=== PATIENT | female | born 1935 | race Caucasian/White ===

== ENCOUNTER → 2018-12-08 | Outpatient (CLI) | payer MEDICARE ==
[~2018-12-08] MED LIST: AMOX875T OR; B12 PO; CELE100C OR; DICYCLOMINE PO; FIBER CHOICE PO; MYLI40DR OR; OXYBUTIN PO; PANTOPRAZOLE PO; VICO5TAB OR; VITAMIN D PO; [UNRECOGNIZED DRUG - OTHER] PO; [UNRECOGNIZED DRUG - OTHER] PO
--- NOTE | 2018-12-08 18:51 | REP ---
LEFT SHOULDER, FIVE VIEWS: SHOULDER: There is no evidence of an acute fracture, dislocation or intrinsic bone disease. IMPRESSION: No fracture or dislocation. Electronically Signed by Heladio Flanagan MD 12/09/2018 11:41 P
== END ==
LOC: M LRY 18:08
PROVIDERS: ATTEND Nurse Practitioner Family
DX: M25.512 Pain in left shoulder (principal)
CPT/HCPCS: 73030; G0463

== ENCOUNTER → 2019-04-10 | Outpatient (REF) | payer MEDICARE ==
[2019-04-10 13:43] LABS: APPEARANCE, URINE CLOUDY (CLEAR); BACTERIA, URINE AUTO 3+ (NEGATIVE); BILIRUBIN, URINE AUTO NEGATIVE (NEGATIVE); BLOOD, URINE BLOOD 1+ (NEGATIVE); COLOR, URINE YELLOW (YELLOW); GLUCOSE, URINE (UA) AUTO NEGATIVE (NEGATIVE); KETONE, URINE AUTO NEGATIVE (NEGATIVE); LEUKOCYTE ESTERASE, URINE AUTO 3+ (NEGATIVE); MUCUS, URINE SMALL (NEGATIVE); NITRITE, URINE AUTO NEGATIVE (NEGATIVE); PROTEIN, URINE AUTO NEGATIVE (NEGATIVE); RBC, URINE AUTO 8 /HPF (0-3); SQUAMOUS EPITHELIAL CELL UR AU 0 /HPF (0-6); UROBILINOGEN, URINE AUTO 0.2 mg/dL (0.0-2.0); WBC, URINE AUTO TNTC /HPF (0-3)
== END ==
LOC: M SMT 13:01
PROVIDERS: ATTEND Nurse Practitioner Family
DX: R32 Unspecified urinary incontinence (principal)
CPT/HCPCS: 51798; 81001; 87088; 87186; G0463

== ENCOUNTER → 2019-06-22 | Outpatient (REF) | payer MEDICARE ==
[2019-06-22 18:10] LABS: APPEARANCE, URINE HAZY (CLEAR); BACTERIA, URINE AUTO 3+ (NEGATIVE); BILIRUBIN, URINE AUTO NEGATIVE (NEGATIVE); BLOOD, URINE BLOOD NEGATIVE (NEGATIVE); COLOR, URINE YELLOW (YELLOW); GLUCOSE, URINE (UA) AUTO NEGATIVE (NEGATIVE); KETONE, URINE AUTO NEGATIVE (NEGATIVE); LEUKOCYTE ESTERASE, URINE AUTO 3+ (NEGATIVE); NITRITE, URINE AUTO NEGATIVE (NEGATIVE); PROTEIN, URINE AUTO NEGATIVE (NEGATIVE); RBC, URINE AUTO 8 /HPF (0-3); SPECIFIC GRAVITY URINE AUTO 1.005 (1.002-1.035); SQUAMOUS EPITHELIAL CELL UR AU 1 /HPF (0-6); UROBILINOGEN, URINE AUTO 0.2 mg/dL (0.0-2.0); WBC, URINE AUTO 92 /HPF (0-3)
== END ==
LOC: M SMT 16:55
PROVIDERS: ATTEND Nurse Practitioner Family
DX: N39.0 Urinary tract infection, site not specified (principal)
CPT/HCPCS: 81001; 87088; 87186; G0463

== ENCOUNTER → 2019-09-30 | Outpatient (CLI) | payer MEDICARE ==
--- NOTE | 2019-09-30 16:52 | REP ---
URINARY TRACT SONOGRAPHY: HISTORY: Urinary tract infection. Comparison CT study, May 23, 2011. SONOGRAPHIC FINDINGS: Visualized bladder alonzo are smooth on the filled views. There is irregularity which appears to protrude into the bladder lumen from the left posterolateral wall of the bladder on the postvoid images. This measures 11 mm in greatest diameter. I cannot exclude a small bladder mass, left posterior wall of the bladder. Consider cystoscopy. Prevoid bladder volume is calculated at 434 mL. Postvoid volume is calculated at 86 mL. Renal cortical echogenicity pattern is normal and contours are smooth. Scan quality is inhibited some degree by patient pain and bowel gas. No mass or cyst is seen. No hydronephrosis is noted in either kidney. Right kidney measures 9.4 x 4.0 x 4.1 cm. Left renal dimensions are 10.4 x 4.4 x 4.8 cm. IMPRESSION: Echogenic material appears to protrude into the left posterior bladder wall on postvoid images, uncertain significance. I cannot exclude a small bladder mass lesion. Consider cystoscopy. Otherwise, negative urinary tract sonography.
== END ==
LOC: M WHC 13:06
PROVIDERS: ATTEND Nurse Practitioner Family
DX: N39.0 Urinary tract infection, site not specified (principal)

== ENCOUNTER → 2019-10-07 | Outpatient (CLI) | payer MEDICARE ==
--- NOTE | 2019-10-09 00:23 | ECWPNPC ---
PATIENT NAME: JOSE L HARRIS : 1935 GENDER: FEMALE VISIT DATE: 10/07/2019 DISCHARGE DATE: 10/07/19 1511 VISIT LOCKED DATE TIME: PHYSICIAN: THOMAS MARTIN RESOURCE: THOMAS MARTIN REASON FOR APPOINTMENT 1. BACK PAIN/LUMBAR SPINE STENOSIS-DAUGHTER TO ACCOMPANY PATIENT HISTORY OF PRESENT ILLNESS DEPRESSION SCREENING: PHQ-2 (2015 EDITION) LITTLE INTEREST OR PLEASURE IN DOING THINGS?NOT AT ALL FEELING DOWN, DEPRESSED, OR HOPELESS?NOT AT ALL TOTAL SCORE0 84-YEAR-OLD FEMALE IN FOR INITIAL PAIN CONSULT. SHE RATES HER PAIN CURRENTLY AT A 10 OUT OF 10 AND DESCRIBES IT BURNING AND INTERMITTENT. PATIENT STATES THE PAIN HAS BEEN PRESENT FOR APPROXIMATELY 8 MONTHS. SHE IS CURRENTLY ON GABAPENTIN 100 MG DAILY TO HELP ALLEVIATE HER PAIN SYMPTOMS AND STATES THAT THIS CURRENT DOSAGE IS INEFFECTIVE. GENERAL: - - -. FALL RISK SCREENING: SCREENING :NO FALLS REPORTED IN THE LAST YEAR PAIN SCREENING: PATIENT HAS A COMPLAINT OF ACUTE OR CHRONIC PAIN :YES LOCATION OF PAIN:RIGHT HIP, LEG(S) INTENSITY OF PAIN (SCALE OF 1 TO 10):10 WHAT DOES YOUR PAIN FEEL LIKE:BURNING, INTERMITTENT DURATION:INTERMITTENT, AWAKENS FROM SLEEP PAIN IS INCREASED BY:ACTIVITIES PAIN IS DECREASED BY: WEARING SUPPORT HOSE NURSING NOTE: - - -. PAIN CENTER INTAKE QUESTIONS: DO YOU HAVE A HISTORY OF MRSA? :NO DO YOU TAKE A BLOOD THINNERS? :NO DO YOU HAVE ANY BLEEDING DISORDERS? :NO ANY NEW NUMBNESS OR WEAKNESS IN YOUR LEGS OR ARMS? :YES RIGHT LEG ANY PACEMAKER,DEFIBRILLATOR, OR DORSAL COLUMN STIMULATOR? :NO DO YOU HAVE ANY RASHES OR OPEN SORES? :NO ARE YOU ALLERGIC TO IV DYE? :YES ARE YOU DIABETIC? :YES BORDERLINE ANY NEW PROBLEMS WITH YOUR MEDICATIONS? :NO HAVE YOU RECEIVED A VACCINE IN THE PAST 30 DAYS? :NO DO YOU PLAN TO RECEIVE A VACCINE IN THE NEXT 21 DAYS? :NO DO YOU NEED ANY PRESCRIPTION? :NO DO YOU TAKE ANY IMMUNOSUPPRESSIVE MEDICATIONS? :NO CURRENT MEDICATIONS TAKING OMEPRAZOLE 40 MG CAPSULE DELAYED RELEASE 1 CAPSULE 30 MINUTES BEFORE MORNING MEAL ORALLY ONCE A DAY TAKING VITAMIN D (CHOLECALCIFEROL) 10 MCG (400 UNIT) TABLET CHEWABLE 1 TABLET ORALLY ONCE A DAY TAKING HAIR SKIN NAILS - CAPSULE DIRECTED ORALLY TAKING OXYBUTYNIN CHLORIDE 5 MG TABLET 1 TABLET ORALLY TWICE A DAY TAKING VITAMIN C 500 MG CAPSULE DIRECTED ORALLY TAKING BENEFIBER - POWDER DIRECTED ORALLY TAKING BUPROPION HCL 75 MG TABLET 2 TABLETS ORALLY TWICE A DAY TAKING GABAPENTIN 100 MG CAPSULE 1 CAPSULE ORALLY ONCE A DAY MEDICATION LIST REVIEWED AND RECONCILED WITH THE PATIENT PAST MEDICAL HISTORY BLADDER INFECTIONS BORDERLINE DIABETES DIVERTICULITIS RIGHT LEG/HIP PAIN ALLERGIES IV CONTRAST DYE: ANAPHYLAXIS - ALLERGY SURGICAL HISTORY BLADDER REPAIR 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 1 DAUGHTER WITH LUNG CANCER, 1 DAUGHTER WITH BREAST CANCER1 SON WITH COPD. SOCIAL HISTORY GENERAL: TOBACCO USE ARE YOU A:NONSMOKER LATEX QUESTIONNAIRE LATEX ALLERGY : HAVE YOU EVER DEVELOPED ANY TYPE OF REACTION AFTER HANDLING LATEX PRODUCTS SUCH RUBBER GLOVES, CONDOMS, DIAPHRAGMS, BALLOONS, SOCKS, OR UNDERWEAR?NO LATEX ALLERGY : HAVE YOU EVER DEVELOPED ANY TYPE OF REACTION DURING OR AFTER DENTAL APPOINTMENT, VAGINAL/RECTAL EXAMINATION, SURGICAL PROCEDURE, OR ANY OTHER EXPOSURE?NO LATEX RISK : HAVE YOU EVER HAD ANY DIFFICULTY BREATHING OR HIVES AFTER EATING OR HANDLING ANY FRUITS, OR VEGETABLES; SUCH KIWI, BANANAS, STONE FRUITS, OR CHESTNUTSNO LATEX RISK : DO YOU HAVE A PREVIOUS PERSONAL HISTORY OF MORE THAN NINE SURGERIES, SPINA BIFIDA, OR REPEATED CATHERIZATIONS? NO LATEX RISK : ARE YOU FREQUENTLY EXPOSED TO LATEX PRODUCTS IN YOUR OCCUPATION?NO DATE ASKED : 10/07/2019 ALCOHOL SCREENING DID YOU HAVE A DRINK CONTAINING ALCOHOL IN THE PAST YEAR?NO POINTS0 INTERPRETATIONNEGATIVE RECREATIONAL DRUG USE DRUG USE?NO CAFFEINE CAFFEINE USE?YES HOW OFTEN AND HOW MUCH? 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 OTHERS AT HOME: NONE. PAIN CLINIC PFS, CLERGY, PUBLIC HEALTH REFERRALS HAS THE PATIENT BEEN EDUCATED REGARDING HIS/HER PLAN OF CARE?YES HAS THE PATIENT BEEN EDUCATED REGARDING PAIN, THE RISK FOR PAIN, THE IMPORTANCE OF EFFECTIVE PAIN MANAGEMENT, AND THE PAIN ASSESSMENT PROCESS?YES ADVANCE DIRECTIVE ADVANCE DIRECTIVE DISCUSSED WITH PATIENT:YES NO PT HAS NO ADVANCED DIRECTIVES, HAS INFORMATION AND WORKING ON IT. HOSPITALIZATION/MAJOR DIAGNOSTIC PROCEDURE SURGICAL CHILDBIRTH REVIEW OF SYSTEMS CONSTITUTIONAL: ANY RECENT FEVER NO . CHILLS NO . WEIGHT CHANGE OF UNKNOWN REASONS NO . MUSCULOSKELETAL: ANY UNUSUAL JOINT PAIN OR SWELLING NOT MENTIONED NO . SYSTEMIC LUPUS NO . ANY NEUROMUSCULAR DISORDER NOT MENTIONED NO . LYME DISEASE NO . GASTROENTEROLOGY: ANY NEW CHANGE IN BOWEL CONTROL? NO . HISTORY OF LIVER DISORDER NOT MENTIONED NO . HISTORY OF UNUSUAL ABDOMINAL PAIN OR CRAMPING NOT MENTIONED NO . NO CONSTIPATION. GENITOURINARY: ANY NEW CHANGE IN BLADDER CONTROL? NO . ANY RENAL/KIDNEY CONDITON NOT MENTIONED NO . NEUROLOGY: HISTORY OF TBI NOT MENTIONED NO . OTHER NEW NUMBNESS OR PAIN PATTERNS NOT MENTIONED NO . NEW ONSET DIZZINESS OR NEUROLOGICAL CHANGES NOT MENTIONED NO . HISTORY OF SEVERE HEADACHES NOT MENTIONED NO . HISTORY OF STROKE OR NEUROLOGICAL DISORDER NOT MENTIONED NO . CARDIOLOGY: HEART SURGERY NO . CONGESTIVE HEART FAILURE/FLUID OVERLOAD NOT MENTIONED NO . HISTORY OF CHEST PAIN,IRREGULAR HEART BEAT NOT MENTIONED NO . RESPIRATORY: SHORTNESS OF BREATH ON EXERTION, WHEEZES, UNUSUAL COUGH NOT MENTIONED NO . ENDOCRINOLOGY: ADRENAL GLAND OR THYROID DISORDERS NOT MENTIONED NO . UNUSUAL URINATION, DIZZINESS OR LETHARGY NOT MENTIONED NO . VITAL SIGNS WT 101.8 LBS, HT 50 IN, BMI 28.63 INDEX, BP 144/61 MM HG, HR 50 /MIN, RR 18 /MIN, TEMP 96.0 F, OXYGEN SAT % 98%, NA INITIALS AW 1348. EXAMINATION GENERAL EXAMINATION: GENERALNO ACUTE DISTRESS, WELL NOURISHED AND HYDRATED. PSYCHAPPROPRIATE MOOD AND AFFECT . LUNGS:CLEAR TO AUSCULTATION BILATERALLY, NO WHEEZES, RHONCHI, RALES. HEART:NO MURMURS, REGULAR RATE AND RHYTHM. BACK:RIGHT SIJ . ASSESSMENTS SACROILIITIS, NOT ELSEWHERE CLASSIFIED - M46.1 (PRIMARY) TREATMENT SACROILIITIS, NOT ELSEWHERE CLASSIFIED REFILL GABAPENTIN CAPSULE, 100 MG, 1 CAPSULE, ORALLY, THREE TIMES DAILY, 30 DAY(S), 90 CLINICAL NOTES: 84-YEAR-OLD FEMALE IN FOR INITIAL PAIN CONSULT. GIVEN PRESENTING SYMPTOMS AND RESULTS OF PHYSICAL EXAMINATION RECOMMENDED INCREASING GABAPENTIN TO 100 MG 3 TIMES A DAY WITH FOLLOW-UP IN ONE MONTH TO DETERMINE EFFICACY OF TREATMENT. SIJ WAS DISCUSSED WITH PATIENT AND HER DAUGHTER THEY WILL BE GIVEN INFORMATION REGARDING THIS PROCEDURE PRIOR TO DEPARTURE TODAY. PATIENT AND DAUGHTER HAS EXPRESSED UNDERSTANDING OF AND WAS IN AGREEMENT WITH TREATMENT PLAN. GIVEN TIME TO ASK QUESTIONS AND EXPRESS CONCERNS. PREVENTIVE MEDICINE PAIN CLINIC TEACHING: MEDICATIONS INFORMATION HANDOUT FOR GABAPENTIN PRINTED AND REVIEWED WITH PATIENT AND DAUGHTER. MEDICATION CHANGES REVIEWED.. PROCEDURE TEACHING INFORMATION ON SACROILIAC JOINT BLOCK PRINTED AND REVIEWED WITH PATIENT AND DAUGHTER.. DISPOSITION & COMMUNICATION FOLLOW UP 4 WEEKS (REASON: SACROILITIS ) ELECTRONICALLY SIGNED BY BRITTANIE COSTA ON 10/08/2019 AT 08:09 AM EDT DISCLAIMER : THIS IS A VISIT SUMMARY EXTRACTED FROM THE [employer] CHART. IT IS NOT A COPY OF THE [employer] PROGRESS NOTE. KATHRIN
== END ==
LOC: M PAIN 13:30
PROVIDERS: ATTEND Family Medicine
DX: M46.1 Sacroiliitis, not elsewhere classified (principal)

== ENCOUNTER → 2020-01-11 | Outpatient (CLI) | payer MEDICARE | LOC: M PAIN 13:45 | PROVIDERS: ATTEND Family Medicine | DX: M46.1 Sacroiliitis, not elsewhere classified (principal) ==

== ENCOUNTER → 2020-01-22 | Outpatient (REF) | payer MEDICARE ==
[2020-01-22 17:32] LABS: APPEARANCE, URINE CLOUDY (CLEAR); BACTERIA, URINE AUTO 3+ (NEGATIVE); BILIRUBIN, URINE AUTO NEGATIVE (NEGATIVE); BLOOD, URINE BLOOD NEGATIVE (NEGATIVE); COLOR, URINE YELLOW (YELLOW); GLUCOSE, URINE (UA) AUTO NEGATIVE (NEGATIVE); KETONE, URINE AUTO NEGATIVE (NEGATIVE); LEUKOCYTE ESTERASE, URINE AUTO 2+ (NEGATIVE); MUCUS, URINE SMALL (NEGATIVE); NITRITE, URINE AUTO POSITIVE (NEGATIVE); PROTEIN, URINE AUTO NEGATIVE (NEGATIVE); RBC, URINE AUTO 1 /HPF (0-3); SPECIFIC GRAVITY URINE AUTO 1.014 (1.002-1.035); SQUAMOUS EPITHELIAL CELL UR AU 0 /HPF (0-6); UROBILINOGEN, URINE AUTO 0.2 mg/dL (0.0-2.0); WBC, URINE AUTO 61 /HPF (0-3)
== END ==
LOC: M SMT 17:15
PROVIDERS: ATTEND Nurse Practitioner Family
DX: N39.0 Urinary tract infection, site not specified (principal)
CPT/HCPCS: 51798; 81001; 87088; 87186; G0463

== ENCOUNTER → 2020-03-23 | Outpatient (REF) | payer MEDICARE ==
[2020-03-23 14:13] LABS: APPEARANCE, URINE CLOUDY (CLEAR); BACTERIA, URINE AUTO 2+ (NEGATIVE); BILIRUBIN, URINE AUTO NEGATIVE (NEGATIVE); BLOOD, URINE BLOOD NEGATIVE (NEGATIVE); COLOR, URINE YELLOW (YELLOW); GLUCOSE, URINE (UA) AUTO NEGATIVE (NEGATIVE); KETONE, URINE AUTO NEGATIVE (NEGATIVE); LEUKOCYTE ESTERASE, URINE AUTO 3+ (NEGATIVE); MUCUS, URINE SMALL (NEGATIVE); NITRITE, URINE AUTO POSITIVE (NEGATIVE); PROTEIN, URINE AUTO NEGATIVE (NEGATIVE); RBC, URINE AUTO 7 /HPF (0-3); SPECIFIC GRAVITY URINE AUTO 1.017 (1.002-1.035); SQUAMOUS EPITHELIAL CELL UR AU 5 /HPF (0-6); TRANSITIONAL EPITHELIAL AUTO 1 /HPF; UROBILINOGEN, URINE AUTO 0.2 mg/dL (0.0-2.0); WBC, URINE AUTO TNTC /HPF (0-3)
== END ==
LOC: M SMT 13:27
PROVIDERS: ATTEND Nurse Practitioner Family
DX: N39.0 Urinary tract infection, site not specified (principal)
CPT/HCPCS: 51798; 81001; 87088; 87186; G0463

== ENCOUNTER → 2020-03-25 | Outpatient (CLI) | payer MEDICARE ==
--- NOTE | 2020-03-29 01:18 | ECWPNPC ---
PATIENT NAME: JOSE L HARRIS : 1935 GENDER: FEMALE VISIT DATE: 03/25/2020 DISCHARGE DATE: 03/25/20 1057 VISIT LOCKED DATE TIME: PHYSICIAN: THOMAS MARTIN PHYSICIAN PAGER NO: ACTIVE RESOURCE: THOMAS MARTIN REASON FOR APPOINTMENT 1. BACK PAIN HISTORY OF PRESENT ILLNESS PAIN CENTER INTAKE QUESTIONS: 84-YEAR-OLD FEMALE IN FOR CHRONIC PAIN FOLLOW-UP. SHE RATES HER PAIN CURRENTLY AT AN 8 OUT OF 10 AND DESCRIBES IT STABBING AND CONTINUOUS. SHE FEELS HER MEDICATIONS ARE HELPFUL BUT DOES ADMIT TO INCREASED PAIN AT TIMES. GENERAL: -. FALL RISK SCREENING: SCREENING :NO FALLS REPORTED IN THE LAST YEAR PAIN SCREENING: PATIENT HAS A COMPLAINT OF ACUTE OR CHRONIC PAIN :YES PAIN IS INCREASED BY:ACTIVITIES,PROLONGED STANDING DURATION:CONSTANT,CONTINOUS WHAT DOES YOUR PAIN FEEL LIKE:STABBING,CONTINOUS INTENSITY OF PAIN (SCALE OF 1 TO 10):8 LOCATION OF PAIN:RIGHT HIP,LEG(S) NURSING NOTE: -. CURRENT MEDICATIONS TAKING OMEPRAZOLE 40 MG CAPSULE DELAYED RELEASE 1 CAPSULE 30 MINUTES BEFORE MORNING MEAL ORALLY ONCE A DAY TAKING VITAMIN D (CHOLECALCIFEROL) 10 MCG (400 UNIT) TABLET CHEWABLE 1 TABLET ORALLY ONCE A DAY TAKING HAIR SKIN NAILS - CAPSULE DIRECTED ORALLY TAKING VITAMIN C 500 MG CAPSULE DIRECTED ORALLY TAKING BENEFIBER - POWDER DIRECTED ORALLY TAKING BUPROPION HCL 75 MG TABLET 2 TABLETS ORALLY TWICE A DAY TAKING DONEPEZIL HCL 10 MG TABLET 1 TABLET AT BEDTIME ORALLY ONCE A DAY TAKING GABAPENTIN 100 MG CAPSULE 1 CAPSULE ORALLY TWO TIMES DAILY TAKING BACLOFEN 5 MG TABLET DIRECTED ORALLY THREE TIMES A DAY TAKING BACTRIM DS 800-160 MG TABLET 1 TABLET ORALLY TWICE A DAY TAKING TYLENOL 1 TAB ORAL TAKING METOPROLOL TARTRATE TAKING MEMANTINE HCL NOT-TAKING MACROBID 100 MG CAPSULE 1 CAP ORALLY BID NOT-TAKING OXYBUTYNIN CHLORIDE 5 MG TABLET 1 TABLET ORALLY TWICE A DAY NOT-TAKING KEFLEX 500 MG CAPSULE 1 CAPSULE ORALLY EVERY 12 HRS NOT-TAKING PYRIDIUM 200 MG TABLET 1 TABLET AFTER MEALS ORALLY THREE TIMES A DAY NOT-TAKING MACROBID 100 MG CAPSULE 1 CAP ORALLY BID MEDICATION LIST REVIEWED AND RECONCILED WITH THE PATIENT PAST MEDICAL HISTORY BLADDER INFECTIONS BORDERLINE DIABETES DIVERTICULITIS RIGHT LEG/HIP PAIN BORDERLINE DM BLADDER INFECTIONS DIVERTICULITIS ALLERGIES CONTRAST DYE IV CONTRAST DYE: ANAPHYLAXIS - ALLERGY IV CONTRAST DYE: ANAPHYLAXIS - ALLERGY SURGICAL HISTORY BLADDER REPAIR PESERY/BLADDER PART OF COLON REMOVED 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 1 DAUGHTER WITH LUNG CANCER, 1 DAUGHTER WITH BREAST CANCER1 SON WITH COPD. SOCIAL HISTORY GENERAL: TOBACCO USE ARE YOU A:NONSMOKER LATEX QUESTIONNAIRE LATEX ALLERGY : HAVE YOU EVER DEVELOPED ANY TYPE OF REACTION AFTER HANDLING LATEX PRODUCTS SUCH RUBBER GLOVES, CONDOMS, DIAPHRAGMS, BALLOONS, SOCKS, OR UNDERWEAR?NO LATEX ALLERGY : HAVE YOU EVER DEVELOPED ANY TYPE OF REACTION DURING OR AFTER DENTAL APPOINTMENT, VAGINAL/RECTAL EXAMINATION, SURGICAL PROCEDURE, OR ANY OTHER EXPOSURE?NO LATEX RISK : HAVE YOU EVER HAD ANY DIFFICULTY BREATHING OR HIVES AFTER EATING OR HANDLING ANY FRUITS, OR VEGETABLES; SUCH KIWI, BANANAS, STONE FRUITS, OR CHESTNUTSNO LATEX RISK : DO YOU HAVE A PREVIOUS PERSONAL HISTORY OF MORE THAN NINE SURGERIES, SPINA BIFIDA, OR REPEATED CATHERIZATIONS? NO LATEX RISK : ARE YOU FREQUENTLY EXPOSED TO LATEX PRODUCTS IN YOUR OCCUPATION?NO DATE ASKED : 03/25/2020 ALCOHOL SCREENING DID YOU HAVE A DRINK CONTAINING ALCOHOL IN THE PAST YEAR?NO DID YOU HAVE A DRINK CONTAINING ALCOHOL IN THE PAST YEAR?NO POINTS0 POINTS0 INTERPRETATIONNEGATIVE INTERPRETATIONNEGATIVE RECREATIONAL DRUG USE DRUG USE?NO DRUG USE?NO CAFFEINE CAFFEINE USE?YES CAFFEINE USE?YES COFFEE/TEA 2/DAY HOW OFTEN AND HOW MUCH? 2/DAY MORMON MORMON NO MOSQUE BELIEFS THAT WOULD IMPACT HEALTH CARE. 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, HAS HEARING AIDS BUT DOESN'T WEAR HEARING IMPAIRED?YES HEARING AIDS VISION IMPAIRED?YES VISION IMPAIRED?YES COGNITIVELY IMPAIRED?NO COGNITIVELY IMPAIRED?YES MILD DEMENTIA/MEMORY LOSS : GLASSES :CORRECTIVE LENSES READINESS TO LEARN?YES READINESS TO LEARN?YES LEARNING PREFERENCES?NO LEARNING PREFERENCES?YES WRITTEN INFORMATION :BOOKLETS, HANDOUTS, DEMONSTRATION/VERBAL INSTRUCTION LEARNING CAPABILITIES PRESENT?YES LEARNING CAPABILITIES PRESENT?YES EMOTIONAL BARRIERS?NO EMOTIONAL BARRIERS?NO SPECIAL DEVICES?NO SPECIAL DEVICES?NO CARE CENTER MANAGER NEEDED?NO CARE CENTER MANAGER NEEDED?NO DOMESTIC VIOLENCE STATUS: DO YOU FEEL SAFE IN YOUR ENVIRONMENT?YES 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 DIET: REGULAR. OTHERS AT HOME: NONE. PAIN CLINIC PFS, CLERGY, PUBLIC HEALTH REFERRALS HAS THE PATIENT BEEN EDUCATED REGARDING HIS/HER PLAN OF CARE?YES HAS THE PATIENT BEEN EDUCATED REGARDING PAIN, THE RISK FOR PAIN, THE IMPORTANCE OF EFFECTIVE PAIN MANAGEMENT, AND THE PAIN ASSESSMENT PROCESS?YES ADVANCE DIRECTIVE ADVANCE DIRECTIVE DISCUSSED WITH PATIENT:YES NO PT HAS NO ADVANCED DIRECTIVES, HAS INFORMATION AND WORKING ON IT. HOSPITALIZATION/MAJOR DIAGNOSTIC PROCEDURE SURGICAL CHILDBIRTH REVIEW OF SYSTEMS CONSTITUTIONAL: ANY RECENT FEVER NO . CHILLS NO . WEIGHT CHANGE OF UNKNOWN REASONS NO . GASTROENTEROLOGY: NEW UNEXPLAINABLE CHANGES IN BOWEL CONTROL NO . CONSTIPATION NO . GENITOURINARY: ANY NEW CHANGE IN BLADDER CONTROL? NO . NEUROLOGY: NEW ONSET DIZZINESS OR NEUROLOGICAL CHANGES NOT MENTIONED NO . NEW NUMBNESS OR PAIN PATTERNS NOT MENTIONED AND PERTINENT TO TODAY'S VISIT NO . CARDIOLOGY: NEW CHEST PRESSURE NO . NEW CHEST PAIN NO . RESPIRATORY: UNEXPLAINABLE COUGH NO . NEW SHORTNESS OF BREATH NO . VITAL SIGNS WT 109.6 LBS, HT 50 IN, BMI 30.82 INDEX, BP 122/61 MM HG, HR 67 /MIN, RR 16 /MIN, TEMP 97.0 F, OXYGEN SAT % 97%, NA INITIALS AW 1021. EXAMINATION GENERAL EXAMINATION: GENERALNO ACUTE DISTRESS, WELL NOURISHED AND HYDRATED. PSYCHAPPROPRIATE MOOD AND AFFECT . LUNGS:CLEAR TO AUSCULTATION BILATERALLY, NO WHEEZES, RHONCHI, RALES. HEART:NO MURMURS, REGULAR RATE AND RHYTHM. ASSESSMENTS ACUTE RIGHT-SIDED LOW BACK PAIN WITH RIGHT-SIDED SCIATICA - M54.41 (PRIMARY) TREATMENT ACUTE RIGHT-SIDED LOW BACK PAIN WITH RIGHT-SIDED SCIATICA REFILL BACLOFEN TABLET, 10 MG, DIRECTED, ORALLY, THREE TIMES A DAY, 30 DAYS, 90 NOTES: 84-YEAR-OLD FEMALE IN FOR CHRONIC PAIN FOLLOW-UP. GIVEN PRESENTING SYMPTOMS RECOMMEND INCREASING BACLOFEN TO 10 MG WITH FOLLOW-UP IN ONE MONTH TO DETERMINE EFFICACY OF TREATMENT. PATIENT AND HER DAUGHTER HAS EXPRESSED UNDERSTANDING OF AND WAS IN AGREEMENT WITH TREATMENT PLAN. GIVEN TIME TO ASK QUESTIONS AND EXPRESS CONCERNS. PROCEDURE CODES FA211 ESTABILISHED PATIENT [facility] CHARGE DISPOSITION & COMMUNICATION FOLLOW UP 4 WEEKS (REASON: MEDICATION) ELECTRONICALLY SIGNED BY BRITTANIE COSTA ON 03/28/2020 AT 08:53 AM EST DISCLAIMER : THIS IS A VISIT SUMMARY EXTRACTED FROM THE [employer] CHART. IT IS NOT A COPY OF THE [employer] PROGRESS NOTE. KATHRIN
== END ==
LOC: M PAIN 10:00
PROVIDERS: ATTEND Family Medicine
DX: M54.41 Lumbago with sciatica, right side (principal); G89.29 Other chronic pain; Z91.041 Radiographic dye allergy status; Z79.899 Other long term (current) drug therapy

== ENCOUNTER → 2020-04-25 | Outpatient (CLI) | payer MEDICARE ==
--- NOTE | 2020-04-28 03:59 | ECWPNPC ---
PATIENT NAME: JOSE L HARRIS : 1935 GENDER: FEMALE VISIT DATE: 04/25/2020 DISCHARGE DATE: 04/25/20 1118 VISIT LOCKED DATE TIME: PHYSICIAN: THOMAS MARTIN PHYSICIAN PAGER NO: ACTIVE RESOURCE: THOMAS MARTIN REASON FOR APPOINTMENT 1. 1 MONTH BACK PAIN HISTORY OF PRESENT ILLNESS DEPRESSION SCREENING: PHQ-2 (2015 EDITION) LITTLE INTEREST OR PLEASURE IN DOING THINGS?NOT AT ALL FEELING DOWN, DEPRESSED, OR HOPELESS?NOT AT ALL TOTAL SCORE0 84-YEAR-OLD FEMALE IN FOR CHRONIC PAIN FOLLOW-UP. SHE RATES HER PAIN CURRENTLY AT AN 10 OUT OF 10 AND DESCRIBES IT SHARP, AND TENDER. PATIENT WAS STARTED ON 10 MG OF BACLOFEN AT LAST CLINIC VISIT AND HER DAUGHTER ADMITS THAT THIS IS TOO STRONG THE PATIENT THEY HAD TO TITRATE BACK TO THE 5 MG DOSE. PAIN CENTER INTAKE QUESTIONS: DO YOU HAVE A HISTORY OF MRSA? :NO DO YOU TAKE A BLOOD THINNERS? :NO DO YOU HAVE ANY BLEEDING DISORDERS? :NO ANY NEW NUMBNESS OR WEAKNESS IN YOUR LEGS OR ARMS? :NO ANY PACEMAKER,DEFIBRILLATOR, OR DORSAL COLUMN STIMULATOR? :NO DO YOU HAVE ANY RASHES OR OPEN SORES? :NO ARE YOU ALLERGIC TO IV DYE? :YES ARE YOU DIABETIC? :YES BORDERLINE ANY NEW PROBLEMS WITH YOUR MEDICATIONS? :YES 10 MG. RIDDHI;LOFEN WAS TOO STRONG. PATIENT REDUCED SELF TO 5 MG. HAVE YOU RECEIVED A VACCINE IN THE PAST 30 DAYS? :NO DO YOU PLAN TO RECEIVE A VACCINE IN THE NEXT 21 DAYS? :NO DO YOU NEED ANY PRESCRIPTION? :NO DO YOU TAKE ANY IMMUNOSUPPRESSIVE MEDICATIONS? :NO IS THERE A CHANCE YOU COULD BE ? :NO ARE YOU BREAST FEEDING? :NO GENERAL: - - - - -. FALL RISK SCREENING: SCREENING :NO FALLS REPORTED IN THE LAST YEAR PAIN SCREENING: PATIENT HAS A COMPLAINT OF ACUTE OR CHRONIC PAIN :YES LOCATION OF PAIN:LOW BACK, RIGHT HIP, LEG(S) INTENSITY OF PAIN (SCALE OF 1 TO 10):10 WHAT DOES YOUR PAIN FEEL LIKE:SHARP, TENDER, OTHER STRONG DURATION:INTERMITTENT PAIN IS INCREASED BY:ACTIVITIES, OTHERS WALKING, SITTING PAIN IS DECREASED BY:USE OF PAIN MEDICATIONS NURSING NOTE: - - - - -. CURRENT MEDICATIONS TAKING OMEPRAZOLE 40 MG CAPSULE DELAYED RELEASE 1 CAPSULE 30 MINUTES BEFORE MORNING MEAL ORALLY ONCE A DAY TAKING HAIR SKIN NAILS - CAPSULE DIRECTED ORALLY TAKING VITAMIN C 500 MG CAPSULE DIRECTED ORALLY TAKING BENEFIBER - POWDER DIRECTED ORALLY TAKING BUPROPION HCL 75 MG TABLET 2 TABLETS ORALLY TWICE A DAY TAKING DONEPEZIL HCL 10 MG TABLET 1 TABLET AT BEDTIME ORALLY ONCE A DAY TAKING GABAPENTIN 100 MG CAPSULE 1 CAPSULE ORALLY TWO TIMES DAILY TAKING TYLENOL 1 TAB ORAL TAKING METOPROLOL TARTRATE TAKING MEMANTINE HCL TAKING BACLOFEN 10 MG TABLET DIRECTED ORALLY THREE TIMES A DAY TAKING IRON 325 (65 FE) MG TABLET 1 TABLET ORALLY ONCE A DAY NOT-TAKING VITAMIN D (CHOLECALCIFEROL) 10 MCG (400 UNIT) TABLET CHEWABLE 1 TABLET ORALLY ONCE A DAY NOT-TAKING BACTRIM DS 800-160 MG TABLET 1 TABLET ORALLY TWICE A DAY NOT-TAKING MACROBID 100 MG CAPSULE 1 CAP ORALLY BID NOT-TAKING MACROBID 100 MG CAPSULE 1 CAP ORALLY BID NOT-TAKING OXYBUTYNIN CHLORIDE 5 MG TABLET 1 TABLET ORALLY TWICE A DAY NOT-TAKING KEFLEX 500 MG CAPSULE 1 CAPSULE ORALLY EVERY 12 HRS NOT-TAKING PYRIDIUM 200 MG TABLET 1 TABLET AFTER MEALS ORALLY THREE TIMES A DAY NOT-TAKING MACROBID 100 MG CAPSULE 1 CAP ORALLY BID PAST MEDICAL HISTORY BLADDER INFECTIONS BORDERLINE DIABETES DIVERTICULITIS RIGHT LEG/HIP PAIN BORDERLINE DM BLADDER INFECTIONS DIVERTICULITIS ALLERGIES CONTRAST DYE IV CONTRAST DYE: ANAPHYLAXIS - ALLERGY IV CONTRAST DYE: ANAPHYLAXIS - ALLERGY SURGICAL HISTORY BLADDER REPAIR PESERY/BLADDER PART OF COLON REMOVED 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 1 DAUGHTER WITH LUNG CANCER, 1 DAUGHTER WITH BREAST CANCER1 SON WITH COPD. SOCIAL HISTORY GENERAL: TOBACCO USE ARE YOU A:NONSMOKER LATEX QUESTIONNAIRE LATEX ALLERGY : HAVE YOU EVER DEVELOPED ANY TYPE OF REACTION AFTER HANDLING LATEX PRODUCTS SUCH RUBBER GLOVES, CONDOMS, DIAPHRAGMS, BALLOONS, SOCKS, OR UNDERWEAR?NO LATEX ALLERGY : HAVE YOU EVER DEVELOPED ANY TYPE OF REACTION DURING OR AFTER DENTAL APPOINTMENT, VAGINAL/RECTAL EXAMINATION, SURGICAL PROCEDURE, OR ANY OTHER EXPOSURE?NO LATEX RISK : HAVE YOU EVER HAD ANY DIFFICULTY BREATHING OR HIVES AFTER EATING OR HANDLING ANY FRUITS, OR VEGETABLES; SUCH KIWI, BANANAS, STONE FRUITS, OR CHESTNUTSNO LATEX RISK : DO YOU HAVE A PREVIOUS PERSONAL HISTORY OF MORE THAN NINE SURGERIES, SPINA BIFIDA, OR REPEATED CATHERIZATIONS? NO LATEX RISK : ARE YOU FREQUENTLY EXPOSED TO LATEX PRODUCTS IN YOUR OCCUPATION?NO DATE ASKED : 04/25/2020 ALCOHOL SCREENING DID YOU HAVE A DRINK CONTAINING ALCOHOL IN THE PAST YEAR?NO DID YOU HAVE A DRINK CONTAINING ALCOHOL IN THE PAST YEAR?NO POINTS0 POINTS0 INTERPRETATIONNEGATIVE INTERPRETATIONNEGATIVE RECREATIONAL DRUG USE DRUG USE? NO. CAFFEINE CAFFEINE USE?YES CAFFEINE USE?YES COFFEE/TEA 2/DAY HOW OFTEN AND HOW MUCH? 2/DAY MORMON MORMON NO YARSANI BELIEFS THAT WOULD IMPACT HEALTH CARE. 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, HAS HEARING AIDS BUT DOESN'T WEAR VISION IMPAIRED?YES VISION IMPAIRED?YES COGNITIVELY IMPAIRED?NO COGNITIVELY IMPAIRED?YES MILD DEMENTIA/MEMORY LOSS : GLASSES :CORRECTIVE LENSES READINESS TO LEARN?YES READINESS TO LEARN?YES LEARNING PREFERENCES?NO LEARNING PREFERENCES?YES WRITTEN INFORMATION :BOOKLETS, HANDOUTS, DEMONSTRATION/VERBAL INSTRUCTION LEARNING CAPABILITIES PRESENT?YES LEARNING CAPABILITIES PRESENT?YES EMOTIONAL BARRIERS?NO EMOTIONAL BARRIERS?NO SPECIAL DEVICES?NO SPECIAL DEVICES?NO RESEARCH KENNEL SUPERVISOR NEEDED?NO RESEARCH KENNEL SUPERVISOR NEEDED?NO DOMESTIC VIOLENCE STATUS: DO YOU FEEL SAFE IN YOUR ENVIRONMENT?YES 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 DIET: REGULAR. OTHERS AT HOME: NONE. PAIN CLINIC PFS, CLERGY, PUBLIC HEALTH REFERRALS HAS THE PATIENT BEEN EDUCATED REGARDING HIS/HER PLAN OF CARE?YES HAS THE PATIENT BEEN EDUCATED REGARDING PAIN, THE RISK FOR PAIN, THE IMPORTANCE OF EFFECTIVE PAIN MANAGEMENT, AND THE PAIN ASSESSMENT PROCESS?YES ADVANCE DIRECTIVE ADVANCE DIRECTIVE DISCUSSED WITH PATIENT:YES PT HAS NO ADVANCED DIRECTIVES, GAVE PATIENT INFORMATION. 04/25/20 HOSPITALIZATION/MAJOR DIAGNOSTIC PROCEDURE SURGICAL CHILDBIRTH REVIEW OF SYSTEMS CONSTITUTIONAL: ANY RECENT FEVER NO . CHILLS NO . WEIGHT CHANGE OF UNKNOWN REASONS NO . GASTROENTEROLOGY: NEW UNEXPLAINABLE CHANGES IN BOWEL CONTROL NO . CONSTIPATION NO . GENITOURINARY: ANY NEW CHANGE IN BLADDER CONTROL? NO . NEUROLOGY: NEW ONSET DIZZINESS OR NEUROLOGICAL CHANGES NOT MENTIONED NO . NEW NUMBNESS OR PAIN PATTERNS NOT MENTIONED AND PERTINENT TO TODAY'S VISIT NO . CARDIOLOGY: NEW CHEST PRESSURE NO . NEW CHEST PAIN NO . RESPIRATORY: UNEXPLAINABLE COUGH NO . NEW SHORTNESS OF BREATH NO . VITAL SIGNS WT 104.8 LBS, HT 50 IN, BMI 29.47 INDEX, BP 164/72 MM HG, HR 65 /MIN, RR 16 /MIN, TEMP 97.6 F, OXYGEN SAT % 97%, SAFE IN ENV? (Y/N) YES, NA INITIALS SC 10:25, REVIEWED BY: ROWAN HILLMAN MA. EXAMINATION GENERAL EXAMINATION: GENERALNO ACUTE DISTRESS, WELL NOURISHED AND HYDRATED. PSYCHAPPROPRIATE MOOD AND AFFECT . LUNGS:CLEAR TO AUSCULTATION BILATERALLY, NO WHEEZES, RHONCHI, RALES. HEART:NO MURMURS, REGULAR RATE AND RHYTHM. ASSESSMENTS SACROILIITIS, NOT ELSEWHERE CLASSIFIED - M46.1 (PRIMARY) TREATMENT SACROILIITIS, NOT ELSEWHERE CLASSIFIED REFILL BACLOFEN TABLET, 5 MG, DIRECTED, ORALLY, THREE TIMES A DAY, 30 DAYS, 90 NOTES: 84-YEAR-OLD FEMALE IN FOR CHRONIC PAIN FOLLOW-UP. GIVEN PRESENTING SYMPTOMS RECOMMEND INCREASING GABAPENTIN TO 100 MG IN THE MORNING AND 200 MG AT NIGHT. WE'LL FOLLOW-UP IN 2 MONTHS. PATIENT AND HER DAUGHTER HAVE EXPRESSED UNDERSTANDING OF AND WERE IN AGREEMENT WITH TREATMENT PLAN. GIVEN TIME TO ASK QUESTIONS AND EXPRESS CONCERNS. PROCEDURE CODES FA211 ESTABILISHED PATIENT [facility]LY [facility] CHARGE DISPOSITION & COMMUNICATION FOLLOW UP 2 MONTHS (REASON: MED INCREASE) ELECTRONICALLY SIGNED BY BRITTANIE COSTA ON 04/27/2020 AT 10:03 AM EST DISCLAIMER : THIS IS A VISIT SUMMARY EXTRACTED FROM THE [employer] CHART. IT IS NOT A COPY OF THE [employer] PROGRESS NOTE. KATHRIN
== END ==
LOC: M PAIN 10:15
PROVIDERS: ATTEND Family Medicine
DX: M46.1 Sacroiliitis, not elsewhere classified (principal); G89.29 Other chronic pain; Z91.041 Radiographic dye allergy status; Z79.899 Other long term (current) drug therapy

== ENCOUNTER → 2020-07-14 | Outpatient (CLI) | payer MEDICARE ==
--- NOTE | 2020-07-15 23:40 | ECWPNPC ---
PATIENT NAME: JOSE L HARRIS : 1935 GENDER: FEMALE VISIT DATE: 07/14/2020 DISCHARGE DATE: 07/14/20 1134 VISIT LOCKED DATE TIME: PHYSICIAN: THOMAS MARTIN PHYSICIAN PAGER NO: ACTIVE RESOURCE: THOMAS MARTIN REASON FOR APPOINTMENT 1. MED INCREASE HISTORY OF PRESENT ILLNESS GENERAL: - 85-YEAR-OLD FEMALE IN FOR CHRONIC PAIN FOLLOW-UP. AT LAST CLINIC VISIT PATIENT'S GABAPENTIN WAS INCREASED AND THEY ADMITTED TODAY THAT THIS WAS NOT BENEFICIAL. SHE RATES HER PAIN CURRENTLY AT A 7 OUT OF 10 AND DESCRIBES IT CONTINUOUS AND SHARP. FALL RISK SCREENING: SCREENING : NO FALLS REPORTED IN THE LAST YEAR. PAIN SCREENING: PATIENT HAS A COMPLAINT OF ACUTE OR CHRONIC PAIN :YES LOCATION OF PAIN:LOW BACK, LEFT HIP, RIGHT HIP, OTHER: BUTTOCKS INTENSITY OF PAIN (SCALE OF 1 TO 10):7 WHAT DOES YOUR PAIN FEEL LIKE:CONTINOUS, SHARP DURATION:CONTINOUS, AWAKENS FROM SLEEP PAIN IS INCREASED BY:OTHERS SITTING PAIN IS DECREASED BY:USE OF PAIN MEDICATIONS, OTHERS BACLOFEN, GABAPENTIN. REPOSITIONING NURSING NOTE: -. PAIN CENTER INTAKE QUESTIONS: DO YOU HAVE A HISTORY OF MRSA? :NO DO YOU TAKE A BLOOD THINNERS? :NO DO YOU HAVE ANY BLEEDING DISORDERS? :NO ANY NEW NUMBNESS OR WEAKNESS IN YOUR LEGS OR ARMS? :NO ANY PACEMAKER,DEFIBRILLATOR, OR DORSAL COLUMN STIMULATOR? :NO DO YOU HAVE ANY RASHES OR OPEN SORES? :NO ARE YOU ALLERGIC TO IV DYE? :YES ARE YOU DIABETIC? :YES BORDERLINE ANY NEW PROBLEMS WITH YOUR MEDICATIONS? :NO HAVE YOU RECEIVED A VACCINE IN THE PAST 30 DAYS? :YES SECOND COVID VACCINATION 06/22/2020 DO YOU PLAN TO RECEIVE A VACCINE IN THE NEXT 21 DAYS? :NO DO YOU NEED ANY PRESCRIPTION? :YES BACLOFEN AND GABAPENTIN DO YOU TAKE ANY IMMUNOSUPPRESSIVE MEDICATIONS? :NO DO YOU HAVE ANY KIDNEY OR LIVER DISEASE? :NO IS THERE A CHANCE YOU COULD BE ? :NO ARE YOU BREAST FEEDING? :NO CURRENT MEDICATIONS TAKING OMEPRAZOLE 40 MG CAPSULE DELAYED RELEASE 1 CAPSULE 30 MINUTES BEFORE MORNING MEAL ORALLY ONCE A DAY TAKING HAIR SKIN NAILS - CAPSULE DIRECTED ORALLY TAKING VITAMIN C 500 MG CAPSULE DIRECTED ORALLY TAKING BENEFIBER - POWDER DIRECTED ORALLY TAKING DONEPEZIL HCL 10 MG TABLET 1 TABLET AT BEDTIME ORALLY ONCE A DAY TAKING TYLENOL 1 TAB ORAL TAKING METOPROLOL TARTRATE 25 MG TABLET ORALLY DAILY TAKING MEMANTINE HCL 10 MG TABLET 2 TAB ORALLY DAILY TAKING IRON 325 (65 FE) MG TABLET 1 TABLET ORALLY ONCE A DAY TAKING BACLOFEN 5 MG TABLET DIRECTED ORALLY THREE TIMES A DAY TAKING DARIFENACIN HYDROBROMIDE ER 15 MG TABLET EXTENDED RELEASE 24 HOUR 1 TABLET WITH LIQUID ORALLY ONCE A DAY TAKING GABAPENTIN 100 MG CAPSULE 1 CAPSULE ORALLY TWO TIMES DAILY NOT-TAKING BUPROPION HCL 75 MG TABLET 2 TABLETS ORALLY TWICE A DAY NOT-TAKING MYRBETRIQ 50 MG TABLET 1 TABLET ORALLY ONCE A DAY UNKNOWN VITAMIN D (CHOLECALCIFEROL) 10 MCG (400 UNIT) TABLET CHEWABLE 1 TABLET ORALLY ONCE A DAY UNKNOWN BACTRIM DS 800-160 MG TABLET 1 TABLET ORALLY TWICE A DAY UNKNOWN MACROBID 100 MG CAPSULE 1 CAP ORALLY BID UNKNOWN MACROBID 100 MG CAPSULE 1 CAP ORALLY BID UNKNOWN OXYBUTYNIN CHLORIDE 5 MG TABLET 1 TABLET ORALLY TWICE A DAY UNKNOWN KEFLEX 500 MG CAPSULE 1 CAPSULE ORALLY EVERY 12 HRS UNKNOWN PYRIDIUM 200 MG TABLET 1 TABLET AFTER MEALS ORALLY THREE TIMES A DAY UNKNOWN MACROBID 100 MG CAPSULE 1 CAP ORALLY BID MEDICATION LIST REVIEWED AND RECONCILED WITH THE PATIENT PAST MEDICAL HISTORY BLADDER INFECTIONS BORDERLINE DIABETES DIVERTICULITIS RIGHT LEG/HIP PAIN BORDERLINE DM BLADDER INFECTIONS DIVERTICULITIS ALLERGIES CONTRAST DYE IV CONTRAST DYE: ANAPHYLAXIS - ALLERGY IV CONTRAST DYE: ANAPHYLAXIS - ALLERGY SOCIAL HISTORY GENERAL: TOBACCO USE ARE YOU A:NONSMOKER LATEX QUESTIONNAIRE LATEX ALLERGY : HAVE YOU EVER DEVELOPED ANY TYPE OF REACTION AFTER HANDLING LATEX PRODUCTS SUCH RUBBER GLOVES, CONDOMS, DIAPHRAGMS, BALLOONS, SOCKS, OR UNDERWEAR?NO LATEX ALLERGY : HAVE YOU EVER DEVELOPED ANY TYPE OF REACTION DURING OR AFTER DENTAL APPOINTMENT, VAGINAL/RECTAL EXAMINATION, SURGICAL PROCEDURE, OR ANY OTHER EXPOSURE?NO LATEX RISK : HAVE YOU EVER HAD ANY DIFFICULTY BREATHING OR HIVES AFTER EATING OR HANDLING ANY FRUITS, OR VEGETABLES; SUCH KIWI, BANANAS, STONE FRUITS, OR CHESTNUTSNO LATEX RISK : DO YOU HAVE A PREVIOUS PERSONAL HISTORY OF MORE THAN NINE SURGERIES, SPINA BIFIDA, OR REPEATED CATHERIZATIONS? NO LATEX RISK : ARE YOU FREQUENTLY EXPOSED TO LATEX PRODUCTS IN YOUR OCCUPATION?NO DATE ASKED : 07/14/2020 ALCOHOL USE: NO. ALCOHOL SCREENING DID YOU HAVE A DRINK CONTAINING ALCOHOL IN THE PAST YEAR?NO DID YOU HAVE A DRINK CONTAINING ALCOHOL IN THE PAST YEAR?NO POINTS0 POINTS0 INTERPRETATIONNEGATIVE INTERPRETATIONNEGATIVE RECREATIONAL DRUG USE DRUG USE?NO CAFFEINE CAFFEINE USE?YES COFFEE/TEA 2/DAY CAFFEINE USE?YES HOW OFTEN AND HOW MUCH? 2/DAY CHEONDOISM CHEONDOISM NO ANABAPTISM BELIEFS THAT WOULD IMPACT HEALTH CARE. 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 DIET: REGULAR. EXERCISE: NO REGULAR EXERCISE. OTHERS AT HOME: NONE. - HAS THE PATIENT BEEN EDUCATED REGARDING HIS/HER PLAN OF CARE?YES HAS THE PATIENT BEEN EDUCATED REGARDING PAIN, THE RISK FOR PAIN, THE IMPORTANCE OF EFFECTIVE PAIN MANAGEMENT, AND THE PAIN ASSESSMENT PROCESS?YES ADVANCE DIRECTIVE ADVANCE DIRECTIVE DISCUSSED WITH PATIENT:YES PT HAS NO ADVANCED DIRECTIVES, GAVE PATIENT INFORMATION. 04/25/20 REVIEW OF SYSTEMS CONSTITUTIONAL: ANY RECENT FEVER NO . CHILLS NO . WEIGHT CHANGE OF UNKNOWN REASONS NO . GASTROENTEROLOGY: NEW UNEXPLAINABLE CHANGES IN BOWEL CONTROL NO . CONSTIPATION NO . GENITOURINARY: ANY NEW CHANGE IN BLADDER CONTROL? NO . NEUROLOGY: NEW ONSET DIZZINESS OR NEUROLOGICAL CHANGES NOT MENTIONED NO . NEW NUMBNESS OR PAIN PATTERNS NOT MENTIONED AND PERTINENT TO TODAY'S VISIT NO . CARDIOLOGY: NEW CHEST PRESSURE NO . PATIENT DENIES NO . RESPIRATORY: UNEXPLAINABLE COUGH NO . NEW SHORTNESS OF BREATH NO . VITAL SIGNS WT 110 LBS, HT 50 IN, BMI 30.93 INDEX, BP 148/64 MM HG, HR 57 /MIN, RR 18 /MIN, TEMP 96.8 F, OXYGEN SAT % 96%, SAFE IN ENV? (Y/N) YES, REVIEWED BY: ROWAN HILLMAN MA. EXAMINATION GENERAL EXAMINATION: GENERALNO ACUTE DISTRESS, WELL NOURISHED AND HYDRATED. PSYCHAPPROPRIATE MOOD AND AFFECT . LUNGS:CLEAR TO AUSCULTATION BILATERALLY, NO WHEEZES, RHONCHI, RALES. HEART:NO MURMURS, REGULAR RATE AND RHYTHM. ASSESSMENTS SACROILIITIS, NOT ELSEWHERE CLASSIFIED - M46.1 (PRIMARY), RISK: (NULL) TREATMENT SACROILIITIS, NOT ELSEWHERE CLASSIFIED REFILL GABAPENTIN CAPSULE, 100 MG, 1 CAPSULE, ORALLY, TWO TIMES DAILY, 90 DAY(S), 180, REFILLS 1 REFILL BACLOFEN TABLET, 5 MG, DIRECTED, ORALLY, THREE TIMES A DAY, 90 DAY(S), 270, REFILLS 1 NOTES: 85-YEAR-OLD FEMALE IN FOR CHRONIC PAIN FOLLOW-UP. GIVEN PRESENTING SYMPTOMS RECOMMEND STARTING EXTRA STRENGTH TYLENOL 500 MG 2 TABS IN THE MORNING 2 TABS AT NIGHT WITH FOLLOW-UP IN 3 MONTHS. PATIENT AND HER DAUGHTER EXPRESSED UNDERSTANDING OF AND WERE IN AGREEMENT WITH TREATMENT PLAN. GIVEN TIME TO ASK QUESTIONS AND EXPRESS CONCERNS. PROCEDURE CODES FA211 ESTABILISHED PATIENT [facility] CHARGE DISPOSITION & COMMUNICATION FOLLOW UP 3 MONTHS ELECTRONICALLY SIGNED BY BRITTANIE COSTA ON 07/15/2020 AT 08:50 AM EDT DISCLAIMER : THIS IS A VISIT SUMMARY EXTRACTED FROM THE [employer] CHART. IT IS NOT A COPY OF THE [employer] PROGRESS NOTE. KATHRIN
== END ==
LOC: M PAIN 10:45
PROVIDERS: ATTEND Family Medicine
DX: M46.1 Sacroiliitis, not elsewhere classified (principal); R73.03 Prediabetes; Z79.899 Other long term (current) drug therapy; Z91.041 Radiographic dye allergy status

== ENCOUNTER → 2020-09-29 | Outpatient (REF) | payer MEDICARE ==
[2020-09-29 14:05] LABS: APPEARANCE, URINE CLOUDY (CLEAR); BACTERIA, URINE AUTO 2+ (NEGATIVE); BILIRUBIN, URINE AUTO NEGATIVE (NEGATIVE); BLOOD, URINE BLOOD NEGATIVE (NEGATIVE); COLOR, URINE YELLOW (YELLOW); GLUCOSE, URINE (UA) AUTO NEGATIVE (NEGATIVE); KETONE, URINE AUTO NEGATIVE (NEGATIVE); LEUKOCYTE ESTERASE, URINE AUTO 3+ (NEGATIVE); MUCUS, URINE SMALL (NEGATIVE); NITRITE, URINE AUTO POSITIVE (NEGATIVE); PROTEIN, URINE AUTO NEGATIVE (NEGATIVE); RBC, URINE AUTO 1 /HPF (0-3); SPECIFIC GRAVITY URINE AUTO 1.018 (1.002-1.035); SQUAMOUS EPITHELIAL CELL UR AU 1 /HPF (0-6); UROBILINOGEN, URINE AUTO 0.2 mg/dL (0.0-2.0); WBC, URINE AUTO 67 /HPF (0-3)
== END ==
LOC: M SMT 13:05
PROVIDERS: ATTEND Nurse Practitioner Family
DX: R32 Unspecified urinary incontinence (principal)
CPT/HCPCS: 81001; 87088; 87186; G0463

== ENCOUNTER → 2020-10-13 | Outpatient (CLI) | payer MEDICARE ==
--- NOTE | 2020-10-15 06:41 | ECWPNPC ---
PATIENT NAME: JOSE L HARRIS : 1935 GENDER: FEMALE VISIT DATE: 10/13/2020 DISCHARGE DATE: 10/13/20 1052 VISIT LOCKED DATE TIME: PHYSICIAN: THOMAS MARTIN PHYSICIAN PAGER NO: ACTIVE RESOURCE: THOMAS MARTIN REASON FOR APPOINTMENT 1. FOLLOWUP HISTORY OF PRESENT ILLNESS GENERAL: HPI 85-YEAR-OLD FEMALE IN FOR CHRONIC PAIN FOLLOW-UP. AT LAST CLINIC VISIT PATIENT WAS STARTED ON TYLENOL EXTRA STRENGTH AND SHE ADMITS TODAY THAT THIS WAS BENEFICIAL. SHE RATES HER PAIN CURRENTLY AT A 0 OUT OF 10 BUT STATES IT CAN GO HIGH A 10 OUT OF 10 WITH ACTIVITY.. -. FALL RISK SCREENING: SCREENING : NO FALLS REPORTED IN THE LAST YEAR. PAIN SCREENING: PATIENT HAS A COMPLAINT OF ACUTE OR CHRONIC PAIN :YES LOCATION OF PAIN:LOW BACK INTENSITY OF PAIN (SCALE OF 1 TO 10):0 PATIENT DENIES PAIN AT THIS TIME. PATIENT STATES WHEN SHE HAS MOVEMENT, IT GETS UP TO A 10. WHAT DOES YOUR PAIN FEEL LIKE:BURNING, CONTINOUS DURATION:CONTINOUS, CONSTANT, STEADY PAIN IS INCREASED BY:ACTIVITIES, PROLONGED STANDING, OTHERS BENDING PAIN IS DECREASED BY:USE OF PAIN MEDICATIONS NURSING NOTE: -. PAIN CENTER INTAKE QUESTIONS: DO YOU HAVE A HISTORY OF MRSA? :NO DO YOU TAKE A BLOOD THINNERS? :NO DO YOU HAVE ANY BLEEDING DISORDERS? :NO ANY NEW NUMBNESS OR WEAKNESS IN YOUR LEGS OR ARMS? :NO ANY PACEMAKER,DEFIBRILLATOR, OR DORSAL COLUMN STIMULATOR? :NO DO YOU HAVE ANY RASHES OR OPEN SORES? :NO ARE YOU ALLERGIC TO IV DYE? :YES ARE YOU DIABETIC? :YES BORDERLINE ANY NEW PROBLEMS WITH YOUR MEDICATIONS? :NO HAVE YOU RECEIVED A VACCINE IN THE PAST 30 DAYS? :YES SECOND COVID VACCINATION 06/22/2020 DO YOU PLAN TO RECEIVE A VACCINE IN THE NEXT 21 DAYS? :NO DO YOU NEED ANY PRESCRIPTION? :YES BACLOFEN AND GABAPENTIN DO YOU TAKE ANY IMMUNOSUPPRESSIVE MEDICATIONS? :NO DO YOU HAVE ANY KIDNEY OR LIVER DISEASE? :NO IS THERE A CHANCE YOU COULD BE ? :NO ARE YOU BREAST FEEDING? :NO CURRENT MEDICATIONS TAKING OMEPRAZOLE 40 MG CAPSULE DELAYED RELEASE 1 CAPSULE 30 MINUTES BEFORE MORNING MEAL ORALLY ONCE A DAY TAKING HAIR SKIN NAILS - CAPSULE DIRECTED ORALLY TAKING VITAMIN C 500 MG CAPSULE DIRECTED ORALLY TAKING BENEFIBER - POWDER DIRECTED ORALLY TAKING TYLENOL 1 TAB ORAL TAKING METOPROLOL TARTRATE 25 MG TABLET ORALLY DAILY TAKING MEMANTINE HCL 10 MG TABLET 2 TAB ORALLY DAILY TAKING IRON 325 (65 FE) MG TABLET 1 TABLET ORALLY ONCE A DAY TAKING GABAPENTIN 100 MG CAPSULE 1 CAPSULE ORALLY TWO TIMES DAILY TAKING BACLOFEN 5 MG TABLET DIRECTED ORALLY THREE TIMES A DAY TAKING RIVASTIGMINE 4.6 MG/24HR PATCH 24 HOUR 1 PATCH TO SKIN TRANSDERMAL ONCE A DAY TAKING MACROBID 100 MG CAPSULE 1 CAP ORALLY BID TAKING IRON 1 TAB ORAL TAKING IMMODIUM 1 TAB ORAL TAKING FISH OIL 1000 MG CAPSULE 1 CAPSULE ORALLY ONCE A DAY NOT-TAKING DONEPEZIL HCL 10 MG TABLET 1 TABLET AT BEDTIME ORALLY ONCE A DAY NOT-TAKING BUPROPION HCL 75 MG TABLET 2 TABLETS ORALLY TWICE A DAY NOT-TAKING MYRBETRIQ 50 MG TABLET 1 TABLET ORALLY ONCE A DAY NOT-TAKING VITAMIN D (CHOLECALCIFEROL) 10 MCG (400 UNIT) TABLET CHEWABLE 1 TABLET ORALLY ONCE A DAY NOT-TAKING BACTRIM DS 800-160 MG TABLET 1 TABLET ORALLY TWICE A DAY NOT-TAKING MACROBID 100 MG CAPSULE 1 CAP ORALLY BID NOT-TAKING MACROBID 100 MG CAPSULE 1 CAP ORALLY BID NOT-TAKING OXYBUTYNIN CHLORIDE 5 MG TABLET 1 TABLET ORALLY TWICE A DAY NOT-TAKING KEFLEX 500 MG CAPSULE 1 CAPSULE ORALLY EVERY 12 HRS NOT-TAKING PYRIDIUM 200 MG TABLET 1 TABLET AFTER MEALS ORALLY THREE TIMES A DAY NOT-TAKING MACROBID 100 MG CAPSULE 1 CAP ORALLY BID MEDICATION LIST REVIEWED AND RECONCILED WITH THE PATIENT PAST MEDICAL HISTORY BLADDER INFECTIONS BORDERLINE DIABETES DIVERTICULITIS RIGHT LEG/HIP PAIN BORDERLINE DM BLADDER INFECTIONS DIVERTICULITIS ALLERGIES CONTRAST DYE IV CONTRAST DYE: ANAPHYLAXIS - ALLERGY IV CONTRAST DYE: ANAPHYLAXIS - ALLERGY SOCIAL HISTORY GENERAL: TOBACCO USE ARE YOU A:NONSMOKER LATEX QUESTIONNAIRE LATEX ALLERGY : HAVE YOU EVER DEVELOPED ANY TYPE OF REACTION AFTER HANDLING LATEX PRODUCTS SUCH RUBBER GLOVES, CONDOMS, DIAPHRAGMS, BALLOONS, SOCKS, OR UNDERWEAR?NO LATEX ALLERGY : HAVE YOU EVER DEVELOPED ANY TYPE OF REACTION DURING OR AFTER DENTAL APPOINTMENT, VAGINAL/RECTAL EXAMINATION, SURGICAL PROCEDURE, OR ANY OTHER EXPOSURE?NO LATEX RISK : HAVE YOU EVER HAD ANY DIFFICULTY BREATHING OR HIVES AFTER EATING OR HANDLING ANY FRUITS, OR VEGETABLES; SUCH KIWI, BANANAS, STONE FRUITS, OR CHESTNUTSNO LATEX RISK : DO YOU HAVE A PREVIOUS PERSONAL HISTORY OF MORE THAN NINE SURGERIES, SPINA BIFIDA, OR REPEATED CATHERIZATIONS? NO LATEX RISK : ARE YOU FREQUENTLY EXPOSED TO LATEX PRODUCTS IN YOUR OCCUPATION?NO DATE ASKED : 10/13/2020 ALCOHOL USE: NO. ALCOHOL SCREENING DID YOU HAVE A DRINK CONTAINING ALCOHOL IN THE PAST YEAR?NO DID YOU HAVE A DRINK CONTAINING ALCOHOL IN THE PAST YEAR?NO POINTS0 POINTS0 INTERPRETATIONNEGATIVE INTERPRETATIONNEGATIVE RECREATIONAL DRUG USE DRUG USE?NO CAFFEINE CAFFEINE USE?YES CAFFEINE USE?YES COFFEE/TEA 2/DAY HOW OFTEN AND HOW MUCH? 2/DAY CHEONDOISM CHEONDOISM NO CHRISTIAN BELIEFS THAT WOULD IMPACT HEALTH CARE. 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 DIET: REGULAR. EXERCISE: NO REGULAR EXERCISE. OTHERS AT HOME: NONE. - HAS THE PATIENT BEEN EDUCATED REGARDING HIS/HER PLAN OF CARE?YES HAS THE PATIENT BEEN EDUCATED REGARDING PAIN, THE RISK FOR PAIN, THE IMPORTANCE OF EFFECTIVE PAIN MANAGEMENT, AND THE PAIN ASSESSMENT PROCESS?YES ADVANCE DIRECTIVE ADVANCE DIRECTIVE DISCUSSED WITH PATIENT:YES PT HAS NO ADVANCED DIRECTIVES, GAVE PATIENT INFORMATION. 04/25/20 REVIEW OF SYSTEMS CONSTITUTIONAL: ANY RECENT FEVER NO . CHILLS NO . WEIGHT CHANGE OF UNKNOWN REASONS NO . GASTROENTEROLOGY: NEW UNEXPLAINABLE CHANGES IN BOWEL CONTROL NO . CONSTIPATION NO . GENITOURINARY: ANY NEW CHANGE IN BLADDER CONTROL? NO . NEUROLOGY: NEW ONSET DIZZINESS OR NEUROLOGICAL CHANGES NOT MENTIONED NO . NEW NUMBNESS OR PAIN PATTERNS NOT MENTIONED AND PERTINENT TO TODAY'S VISIT NO . CARDIOLOGY: NEW CHEST PRESSURE NO . PATIENT DENIES NO . RESPIRATORY: UNEXPLAINABLE COUGH NO . NEW SHORTNESS OF BREATH NO . VITAL SIGNS WT 112.2 LBS, HT 50 IN, BMI 31.55 INDEX, BP 145/91 MM HG, HR 50 /MIN, RR 18 /MIN, TEMP 96.6 F, OXYGEN SAT % 98%, SAFE IN ENV? (Y/N) YES, REVIEWED BY: ROWAN HILLMAN MA. EXAMINATION GENERAL EXAMINATION: GENERALNO ACUTE DISTRESS, WELL NOURISHED AND HYDRATED. PSYCHAPPROPRIATE MOOD AND AFFECT . LUNGS:CLEAR TO AUSCULTATION BILATERALLY, NO WHEEZES, RHONCHI, RALES. HEART:NO MURMURS, REGULAR RATE AND RHYTHM. ASSESSMENTS SACROILIITIS, NOT ELSEWHERE CLASSIFIED - M46.1 (PRIMARY) TREATMENT SACROILIITIS, NOT ELSEWHERE CLASSIFIED REFILL GABAPENTIN CAPSULE, 100 MG, 1 CAPSULE, ORALLY, TWO TIMES DAILY, 90 DAY(S), 180, REFILLS 1 REFILL BACLOFEN TABLET, 5 MG, DIRECTED, ORALLY, THREE TIMES A DAY, 90 DAY(S), 270, REFILLS 1 NOTES: 85-YEAR-OLD FEMALE IN FOR CHRONIC PAIN FOLLOW-UP. GIVEN PRESENTING SYMPTOMS RECOMMEND CONTINUATION OF CURRENT MEDICATION REGIMEN WITH FOLLOW-UP IN 3 MONTHS. PATIENT HAS EXPRESSED UNDERSTANDING OF AND WAS IN AGREEMENT WITH TREATMENT PLAN. GIVEN TIME TO ASK QUESTIONS AND EXPRESS CONCERNS. PROCEDURE CODES FA211 ESTABILISHED PATIENT [facility] CHARGE DISPOSITION & COMMUNICATION FOLLOW UP 3 MONTHS (REASON: SACROILIITIS) ELECTRONICALLY SIGNED BY BRITTANIE COSTA ON 10/14/2020 AT 08:26 AM EDT DISCLAIMER : THIS IS A VISIT SUMMARY EXTRACTED FROM THE [employer] CHART. IT IS NOT A COPY OF THE [employer] PROGRESS NOTE. ANDREWD
== END ==
LOC: M PAIN 10:30
PROVIDERS: ATTEND Family Medicine
DX: M46.1 Sacroiliitis, not elsewhere classified (principal); G89.29 Other chronic pain; Z91.041 Radiographic dye allergy status; Z79.899 Other long term (current) drug therapy

== ENCOUNTER → 2021-01-13 | Outpatient (CLI) | payer MEDICARE | LOC: M PAIN 10:30 | PROVIDERS: ATTEND Anesthesiology | DX: M46.1 Sacroiliitis, not elsewhere classified (principal); G89.29 Other chronic pain; Z91.041 Radiographic dye allergy status; Z79.899 Other long term (current) drug therapy ==

== ENCOUNTER → 2022-06-21 | Outpatient (REF) | payer MEDICARE ==
[2022-06-21 07:07] LABS: HEMATOCRIT 36.5 % (36.0-47.0); HEMOGLOBIN 11.6 g/dl (12.0-15.5); MEAN CORPUSCULAR HEMOGLOBIN 29.7 pg (27.0-33.0); MEAN CORPUSCULAR HGB CONC 31.8 g/dl (32.0-36.5); MEAN CORPUSCULAR VOLUME 93.4 fl (80.0-96.0); PLATELET COUNT, AUTOMATED 207 10^3/uL (150-450); RED BLOOD COUNT 3.91 10^6/uL (4.00-5.40); WHITE BLOOD COUNT 4.8 10^3/uL (4.0-10.0)
[2022-06-21 07:29] LABS: ALBUMIN 3.2 G/DL (3.2-5.2); ALKALINE PHOSPHATASE 50 U/L (46-116); ALT/SGPT 15 U/L (7.0-40); AST/SGOT 20 U/L (<34); BILIRUBIN,TOTAL 0.4 MG/DL (0.3-1.2); BLOOD UREA NITROGEN 22 MG/DL (9-23); CARBON DIOXIDE LEVEL 28 MMOL/L (20-31); CHLORIDE LEVEL 106 MMOL/L (98-107); CREATININE FOR GFR 0.69 MG/DL (0.55-1.30); GLOMERULAR FILTRATION RATE > 60.0 (>32); GLUCOSE, FASTING 92 MG/DL (74-106); POTASSIUM SERUM 4.6 MMOL/L (3.5-5.1); SODIUM LEVEL 141 MMOL/L (136-145); TOTAL PROTEIN 5.8 G/DL (5.7-8.2)
[2022-06-21 07:30] LABS: HEMOGLOBIN A1c 5.9 % (4.0-6.0)
== END ==
LOC: SKLAB6 07:00
PROVIDERS: ATTEND Internal Medicine
DX: E11.9 Type 2 diabetes mellitus without complications (principal); F03.90 Unspecified dementia, unspecified severity, without behavioral disturbance, psychotic disturbance, mood disturbance, and anxiety

== ENCOUNTER → 2022-07-25 | Outpatient (REF) | payer MEDICARE ==
[2022-07-25 09:51] LABS: HEMATOCRIT 39.3 % (36.0-47.0); HEMOGLOBIN 12.6 g/dl (12.0-15.5); MEAN CORPUSCULAR HEMOGLOBIN 29.5 pg (27.0-33.0); MEAN CORPUSCULAR HGB CONC 32.1 g/dl (32.0-36.5); PLATELET COUNT, AUTOMATED 226 10^3/uL (150-450); RED BLOOD COUNT 4.27 10^6/uL (4.00-5.40); WHITE BLOOD COUNT 7.1 10^3/uL (4.0-10.0)
[2022-07-25 10:14] LABS: BLOOD UREA NITROGEN 26 MG/DL (9-23); CALCIUM LEVEL 9.1 MG/DL (8.3-10.6); CARBON DIOXIDE LEVEL 28 MMOL/L (20-31); CHLORIDE LEVEL 104 MMOL/L (98-107); CREATININE FOR GFR 0.72 MG/DL (0.55-1.30); GLOMERULAR FILTRATION RATE > 60.0 (>32); GLUCOSE, FASTING 98 MG/DL (74-106); SODIUM LEVEL 140 MMOL/L (136-145)
[2022-07-25 14:11] LABS: APPEARANCE, URINE CLOUDY (CLEAR); BACTERIA, URINE AUTO 3+ (NEGATIVE); BILIRUBIN, URINE AUTO NEGATIVE (NEGATIVE); BLOOD, URINE BLOOD NEGATIVE (NEGATIVE); COLOR, URINE AMBER (YELLOW); GLUCOSE, URINE (UA) AUTO NEGATIVE (NEGATIVE); KETONE, URINE AUTO TRACE mg/dL (NEGATIVE); LEUKOCYTE ESTERASE, URINE AUTO 3+ (NEGATIVE); MUCUS, URINE SMALL (NEGATIVE); NITRITE, URINE AUTO POSITIVE (NEGATIVE); PROTEIN, URINE AUTO 1+ mg/dL (NEGATIVE); RBC, URINE AUTO 9 /HPF (0-3); SQUAMOUS EPITHELIAL CELL UR AU 6 /HPF (0-6); TRANSITIONAL EPITHELIAL AUTO 1 /HPF; WBC, URINE AUTO 105 /HPF (0-3)
== END ==
LOC: SKLAB6 08:27
PROVIDERS: ATTEND Internal Medicine
DX: R45.1 Restlessness and agitation (principal); Z79.899 Other long term (current) drug therapy

== ENCOUNTER → 2022-07-25 | Outpatient (REF) | LOC: SKLAB6 13:58 | PROVIDERS: ATTEND Internal Medicine | DX: R45.1 Restlessness and agitation (principal) ==

== ENCOUNTER → 2022-07-28 | Outpatient (REF) | payer MEDICARE | LOC: SKLAB6 17:37 | PROVIDERS: ATTEND Internal Medicine | DX: M81.0 Age-related osteoporosis without current pathological fracture (principal); M79.89 Other specified soft tissue disorders; M19.032 Primary osteoarthritis, left wrist; M19.042 Primary osteoarthritis, left hand ==

== ENCOUNTER → 2022-07-30 | Outpatient (CLI) | payer MEDICARE | LOC: M RAD 13:41 | PROVIDERS: ATTEND Nurse Practitioner Adult Health | DX: M79.89 Other specified soft tissue disorders (principal); M19.012 Primary osteoarthritis, left shoulder ==

== ENCOUNTER → 2022-07-30 | Outpatient (REF) | payer MEDICARE | LOC: SKLAB6 13:04 | PROVIDERS: ATTEND Internal Medicine | DX: R22.32 Localized swelling, mass and lump, left upper limb (principal); Z53.8 Procedure and treatment not carried out for other reasons ==

== ENCOUNTER → 2022-12-20 | Outpatient (REF) | payer MEDICARE ==
[2022-12-20 08:44] LABS: HEMATOCRIT 37.2 % (36.0-47.0); HEMOGLOBIN 12.2 g/dl (12.0-15.5); MEAN CORPUSCULAR HEMOGLOBIN 29.1 pg (27.0-33.0); MEAN CORPUSCULAR HGB CONC 32.8 g/dl (32.0-36.5); MEAN CORPUSCULAR VOLUME 88.8 fl (80.0-96.0); PLATELET COUNT, AUTOMATED 213 10^3/uL (150-450); RED BLOOD COUNT 4.19 10^6/uL (4.00-5.40); WHITE BLOOD COUNT 6.8 10^3/uL (4.0-10.0)
[2022-12-20 09:11] LABS: HEMOGLOBIN A1c 6.3 % (4.0-6.0)
[2022-12-20 09:17] LABS: ALBUMIN 3.2 G/DL (3.2-5.2); ALKALINE PHOSPHATASE 63 U/L (46-116); ALT/SGPT 13 U/L (7.0-40); AST/SGOT 16 U/L (<34); BILIRUBIN,TOTAL 0.9 MG/DL (0.3-1.2); BLOOD UREA NITROGEN 24 MG/DL (9-23); CALCIUM LEVEL 9.3 MG/DL (8.3-10.6); CARBON DIOXIDE LEVEL 26 MMOL/L (20-31); CHLORIDE LEVEL 104 MMOL/L (98-107); CREATININE FOR GFR 0.62 MG/DL (0.55-1.30); GLOMERULAR FILTRATION RATE > 60.0 (>32); GLUCOSE, FASTING 142 MG/DL (74-106); POTASSIUM SERUM 3.9 MMOL/L (3.5-5.1); SODIUM LEVEL 139 MMOL/L (136-145); TOTAL PROTEIN 6.2 G/DL (5.7-8.2)
== END ==
LOC: SKLAB6 07:00
PROVIDERS: ATTEND Internal Medicine
DX: E11.9 Type 2 diabetes mellitus without complications (principal)

== ENCOUNTER → 2023-02-06 | Outpatient (REF) | payer MEDICARE ==
[2023-02-06 07:17] LABS: HEMOGLOBIN 12.5 g/dl (12.0-15.5); MEAN CORPUSCULAR HEMOGLOBIN 29.5 pg (27.0-33.0); MEAN CORPUSCULAR HGB CONC 32.9 g/dl (32.0-36.5); MEAN CORPUSCULAR VOLUME 89.6 fl (80.0-96.0); PLATELET COUNT, AUTOMATED 184 10^3/uL (150-450); RED BLOOD COUNT 4.24 10^6/uL (4.00-5.40); WHITE BLOOD COUNT 8.8 10^3/uL (4.0-10.0)
[2023-02-06 07:51] LABS: ALBUMIN 3.6 G/DL (3.2-5.2); ALKALINE PHOSPHATASE 72 U/L (46-116); ALT/SGPT 17 U/L (7.0-40); AST/SGOT 19 U/L (<34); BILIRUBIN,TOTAL 0.9 MG/DL (0.3-1.2); BLOOD UREA NITROGEN 37 MG/DL (9-23); CALCIUM LEVEL 9.1 MG/DL (8.3-10.6); CARBON DIOXIDE LEVEL 26 MMOL/L (20-31); CHLORIDE LEVEL 103 MMOL/L (98-107); CREATININE FOR GFR 0.67 MG/DL (0.55-1.30); GLOMERULAR FILTRATION RATE > 60.0 (>32); GLUCOSE, FASTING 205 MG/DL (74-106); POTASSIUM SERUM 4.2 MMOL/L (3.5-5.1); SODIUM LEVEL 141 MMOL/L (136-145); TOTAL PROTEIN 6.6 G/DL (5.7-8.2)
== END ==
LOC: SKLAB6 07:00
PROVIDERS: ATTEND Internal Medicine
DX: R45.1 Restlessness and agitation (principal); Z79.899 Other long term (current) drug therapy

== ENCOUNTER → 2023-02-06 | Outpatient (CLI) | payer MEDICARE | LOC: M RAD 13:27 | PROVIDERS: ATTEND Nurse Practitioner Adult Health | DX: R41.82 Altered mental status, unspecified (principal); R90.89 Other abnormal findings on diagnostic imaging of central nervous system ==

== ENCOUNTER → 2023-02-07 | Outpatient (CLI) | payer MEDICARE | LOC: M RAD 08:49 | PROVIDERS: ATTEND Nurse Practitioner Adult Health | DX: R41.82 Altered mental status, unspecified (principal); M26.602 Left temporomandibular joint disorder, unspecified ==

== ENCOUNTER 2023-02-23 01:43 | Inpatient (IN) | payer MEDICARE ==
[2023-02-23] VITALS (9 sets, daily range): BP systolic 88–133; BP diastolic 53–60; TEMP 96.8–98.6; O2SAT 90–97
[2023-02-23] MEDS ORDERED: KETOROLAC 30 MG/ML 1ML VIAL IV ONE (04:35)
[2023-02-23] MEDS ORDERED: ACETAMINOPHEN *IV* 1,000 MG in IV 1 EA IV ONE (04:35)
[2023-02-23 05:06] LABS: BASO % 0.3 % (0.0-1.0); EOS # 0.1 10^3/uL (0.0-0.5); EOS % 0.8 % (0.0-3.0); HEMATOCRIT 38.6 % (36.0-47.0); HEMOGLOBIN 12.7 g/dl (12.0-15.5); LYMPH # 1.7 10^3/uL (1.5-5.0); LYMPH % 15.6 % (24.0-44.0); MEAN CORPUSCULAR HEMOGLOBIN 29.7 pg (27.0-33.0); MEAN CORPUSCULAR HGB CONC 32.9 g/dl (32.0-36.5); MEAN CORPUSCULAR VOLUME 90.4 fl (80.0-96.0); MONO # 0.6 10^3/uL (0.0-0.8); MONO % 5.8 % (2.0-8.0); NEUTROPHILS # 8.5 10^3/uL (1.5-8.5); PLATELET COUNT, AUTOMATED 209 10^3/uL (150-450); RED BLOOD COUNT 4.27 10^6/uL (4.00-5.40); WHITE BLOOD COUNT 11.1 10^3/uL (4.0-10.0)
[2023-02-23] MEDS ORDERED: ACET-683 PO (05:24)
[2023-02-23] MEDS ORDERED: DULC10SU2 PR ×2 (05:25→06:18)
[2023-02-23 05:29] LABS: BLOOD UREA NITROGEN 29 MG/DL (9-23); CALCIUM LEVEL 9.2 MG/DL (8.3-10.6); CARBON DIOXIDE LEVEL 26 MMOL/L (20-31); CHLORIDE LEVEL 103 MMOL/L (98-107); CREATININE FOR GFR 0.61 MG/DL (0.55-1.30); GLOMERULAR FILTRATION RATE > 60.0 (>32); GLUCOSE, FASTING 132 MG/DL (74-106); MAGNESIUM LEVEL 1.7 MG/DL (1.8-2.4); POTASSIUM SERUM 4.1 MMOL/L (3.5-5.1); SODIUM LEVEL 140 MMOL/L (136-145)
[2023-02-23 05:38] LABS: RSV AMPLIFICATION NEGATIVE (NEGATIVE)
[2023-02-23] MEDS ORDERED: PARO10TA3 PO (05:45)
[2023-02-23] MEDS ORDERED: MEMA1TAB3 PO (05:45)
[2023-02-23] MEDS ORDERED: MOM30SS2 PO (05:45)
[2023-02-23] MEDS ORDERED: METO1TAB32 PO (05:45)
[2023-02-23] MEDS ORDERED: FLEEENE12 PR (05:45)
[2023-02-23] MEDS ORDERED: GABA-1171 PO (05:45)
[2023-02-23] MEDS ORDERED: ACET-907 PO (05:45)
[2023-02-23] MEDS ORDERED: SYST1SOL OU (05:45)
[2023-02-23] MEDS ORDERED: LIDO1PAD TOP (05:45)
[2023-02-23] MEDS ORDERED: RISP50INJ IM (05:45)
[2023-02-23] MEDS ORDERED: VIT D (05:51)
[2023-02-23] MEDS ORDERED: DICL20GE TP (05:51)
[2023-02-23] MEDS ORDERED: MOM 30ML SUSPENSION UDC PO PRN (05:55)
[2023-02-23] MEDS ORDERED: MAALOX 30 ML SUSP *UDC PO PRN (05:55)
[2023-02-23] MEDS ORDERED: ACETAMINOPHEN TAB 650MG DOSE (2X325MG) PO PRN ×2 (05:55→15:45)
[2023-02-23] MEDS ORDERED: ERGO500029 PO (06:18)
[2023-02-23] MEDS ORDERED: [UNRECOGNIZED DRUG - CODE] IM (06:18)
[2023-02-23] MEDS ORDERED: HOME MED LIST COMPLETE! XX SCH (06:20)
[2023-02-23] MEDS: NS 1,000 ML IV SCH ×2 (06:35→12:38)
[2023-02-23] MEDS ORDERED: HYDROmorphone 2 MG TAB PO PRN (06:40)
[2023-02-23] MEDS ORDERED: FLEET ENEMA PR PRN (06:40)
[2023-02-23] MEDS ORDERED: BISACODYL 10MG SUPP PR PRN (06:40)
[2023-02-23] MEDS ORDERED: MAG SULF 1GM/100ML (MAG RUN) 1 GM in IV 1 EA IV ONE (07:00)
[2023-02-23] MEDS ORDERED: PILL CUTTER 1 EACH XX PRN (07:10)
[2023-02-23] MEDS ORDERED: ceFAZolin SOD 2 GM in IV 1 EA IV ONE (08:00)
[2023-02-23] MEDS ORDERED: fentaNYL 100 MCG/2 ML INJECTION As Ordered ONE (08:06)
[2023-02-23] MEDS ORDERED: LIDOCAINE 2% 100MG/5ML SDV (FOR ANES.) As Ordered ONE (08:11)
[2023-02-23] MEDS ORDERED: propofoL 200 MG/20 ML VIAL As Ordered ONE (08:11)
[2023-02-23] MEDS ORDERED: ceFAZolin 2 GM/D5W 50 ML IV BAG As Ordered ONE (08:12)
[2023-02-23] MEDS ORDERED: ceFAZolin 1GM VIAL As Ordered ONE (08:14)
[2023-02-23] MEDS ORDERED: PHENYLephrine 500MCG 5ML (100MCG/ML) SYRINGE As Ordered ONE (08:44)
[2023-02-23] MEDS ORDERED: METOPROLOL SUCC *XL* 25MG TAB (TopROL *XL*) PO SCH (09:00)
[2023-02-23] MEDS ORDERED: ACETAMINOPHEN 1000MG 100ML IV BAG As Ordered ONE (09:20)
[2023-02-23] MEDS ORDERED: ONDANSETRON 4MG 2ML VIAL IV PRN (09:30)
[2023-02-23] MEDS ORDERED: fentaNYL 100 MCG/2 ML INJECTION IV PRN (09:30)
[2023-02-23] MEDS ORDERED: HYDROMORPHONE HCL 0.5 MG/ 0.5 ML SYRINGE IV PRN (09:30)
[2023-02-23] MEDS ORDERED: oxyCODONE 5MG TAB PO PRN ×2 (09:30→15:45)
[2023-02-23] MEDS ORDERED: LR 1,000 ML IV SCH (09:30)
[2023-02-23] MEDS ORDERED: PHENYLEPHRINE 10MG/ML 1ML VIAL As Ordered ONE (10:39)
[2023-02-23] MEDS ORDERED: PHENYLEPHRINE HCL INJ 10 MG in D5W 100 ML IV STA (10:40)
[2023-02-23] MEDS: PARoxetine 10MG TABLET PO SCH (13:50)
[2023-02-23] MEDS: MEMANTINE 5MG TABLET (NAMENDA) PO SCH ×2 (13:51→22:24)
[2023-02-23] MEDS: LIDOCAINE 5% (LIDODERM) PATCH TOP SCH (13:51)
[2023-02-23] MEDS: ceFAZolin SOD 2 GM in IV 1 EA IV SCH (16:51)
[2023-02-23] MEDS ORDERED: GABAPENTIN 100 MG CAP PO SCH (21:00)
[2023-02-24] MEDS: ceFAZolin SOD 2 GM in IV 1 EA IV SCH (00:32)
[2023-02-24 01:55] VITALS: BP 119/58; TEMP 99; O2SAT 98
[2023-02-24 06:39] VITALS: BP 130/72; TEMP 98.6; O2SAT 93
[2023-02-24 07:20] LABS: BASO % 0.5 % (0.0-1.0); EOS # 0.2 10^3/uL (0.0-0.5); EOS % 3.5 % (0.0-3.0); HEMATOCRIT 27.3 % (36.0-47.0); LYMPH # 1.2 10^3/uL (1.5-5.0); LYMPH % 20.3 % (24.0-44.0); MEAN CORPUSCULAR HEMOGLOBIN 29.5 pg (27.0-33.0); MEAN CORPUSCULAR HGB CONC 32.6 g/dl (32.0-36.5); MEAN CORPUSCULAR VOLUME 90.4 fl (80.0-96.0); MONO # 0.5 10^3/uL (0.0-0.8); MONO % 7.7 % (2.0-8.0); NEUTROPHILS # 4.1 10^3/uL (1.5-8.5); NEUTROPHILS % 67.8 % (36.0-66.0); PLATELET COUNT, AUTOMATED 133 10^3/uL (150-450); RED BLOOD COUNT 3.02 10^6/uL (4.00-5.40); WHITE BLOOD COUNT 6.1 10^3/uL (4.0-10.0)
[2023-02-24 07:22] LABS: HEMOGLOBIN 8.9 g/dl (12.0-15.5)
[2023-02-24 07:44] LABS: BLOOD UREA NITROGEN 28 MG/DL (9-23); CALCIUM LEVEL 7.9 MG/DL (8.3-10.6); CARBON DIOXIDE LEVEL 24 MMOL/L (20-31); CHLORIDE LEVEL 109 MMOL/L (98-107); CREATININE FOR GFR 0.65 MG/DL (0.55-1.30); GLOMERULAR FILTRATION RATE > 60.0 (>32); GLUCOSE, FASTING 146 MG/DL (74-106); SODIUM LEVEL 142 MMOL/L (136-145)
[2023-02-24] MEDS: GABAPENTIN 100 MG CAP PO SCH ×2 (09:21→22:28)
[2023-02-24] MEDS: ASPIRIN 81MG ENTERIC TABLET PO SCH ×2 (09:22→22:28)
[2023-02-24] MEDS: ACETAMINOPHEN 500 MG TAB PO SCH ×2 (09:22→22:28)
[2023-02-24] MEDS: MEMANTINE 5MG TABLET (NAMENDA) PO SCH ×2 (09:23→22:32)
[2023-02-24] MEDS: PARoxetine 10MG TABLET PO SCH (09:23)
[2023-02-24] MEDS: LIDOCAINE 5% (LIDODERM) PATCH TOP SCH (09:24)
[2023-02-24 10:07] VITALS: BP 125/70; TEMP 98.6; O2SAT 93
[2023-02-24 15:30] VITALS: BP 117/64; TEMP 98.3; O2SAT 93
[2023-02-24 20:42] VITALS: BP 129/63; TEMP 98.8; O2SAT 92
[2023-02-24 22:00] VITALS: BP 114/66; TEMP 98.6; O2SAT 96
[2023-02-25 06:07] LABS: BASO % 0.4 % (0.0-1.0); EOS # 0.3 10^3/uL (0.0-0.5); EOS % 3.9 % (0.0-3.0); HEMATOCRIT 28.9 % (36.0-47.0); HEMOGLOBIN 9.4 g/dl (12.0-15.5); LYMPH # 1.1 10^3/uL (1.5-5.0); LYMPH % 15.4 % (24.0-44.0); MEAN CORPUSCULAR HEMOGLOBIN 29.8 pg (27.0-33.0); MEAN CORPUSCULAR HGB CONC 32.5 g/dl (32.0-36.5); MEAN CORPUSCULAR VOLUME 91.7 fl (80.0-96.0); MONO # 0.5 10^3/uL (0.0-0.8); MONO % 6.8 % (2.0-8.0); NEUTROPHILS # 5.2 10^3/uL (1.5-8.5); NEUTROPHILS % 73.1 % (36.0-66.0); PLATELET COUNT, AUTOMATED 137 10^3/uL (150-450); RED BLOOD COUNT 3.15 10^6/uL (4.00-5.40); WHITE BLOOD COUNT 7.2 10^3/uL (4.0-10.0)
[2023-02-25 06:31] VITALS: BP 135/64; TEMP 98.1; O2SAT 93
[2023-02-25 06:31] LABS: BLOOD UREA NITROGEN 18 MG/DL (9-23); CALCIUM LEVEL 8.5 MG/DL (8.3-10.6); CARBON DIOXIDE LEVEL 25 MMOL/L (20-31); CHLORIDE LEVEL 107 MMOL/L (98-107); CREATININE FOR GFR 0.59 MG/DL (0.55-1.30); GLOMERULAR FILTRATION RATE > 60.0 (>32); GLUCOSE, FASTING 127 MG/DL (74-106); SODIUM LEVEL 142 MMOL/L (136-145)
[2023-02-25] MEDS: ASPIRIN 81MG ENTERIC TABLET PO SCH (10:08)
[2023-02-25] MEDS: GABAPENTIN 100 MG CAP PO SCH (10:08)
[2023-02-25] MEDS: MEMANTINE 5MG TABLET (NAMENDA) PO SCH (10:09)
[2023-02-25] MEDS: ACETAMINOPHEN 500 MG TAB PO SCH (10:09)
[2023-02-25] MEDS: PARoxetine 10MG TABLET PO SCH (10:10)
[2023-02-25] MEDS: LIDOCAINE 5% (LIDODERM) PATCH TOP SCH (10:10)
[2023-02-25] MEDS ORDERED: OXYC-517 PO (10:48)
[2023-02-25] MEDS ORDERED: GABA-1171 PO (10:48)
[2023-02-25] MEDS ORDERED: ASPI81TAEC PO (10:48)
[2023-02-28] MEDS ORDERED: risperiDONE LONG-ACTING 25MG 2ML INJ IM SCH (09:00)
== END 2023-02-25 12:25 | DRG 481 ==
LOC: M ED 01:43 → M ED INP 05:28 → M MS5PR 12:55
PROVIDERS: ADMIT Internal Medicine; ATTEND Internal Medicine Nephrology
PROC: 0QS636Z Reposition Right Upper Femur with Intramedullary Internal Fixation Device, Percutaneous Approach (ICD-10-PCS; principal; 2023-02-23 07:00)
DX: S72.144A Nondisplaced intertrochanteric fracture of right femur, initial encounter for closed fracture (principal); D62 Acute posthemorrhagic anemia; W01.0XXA Fall on same level from slipping, tripping and stumbling without subsequent striking against object, initial encounter; Y92.129 Unspecified place in nursing home as the place of occurrence of the external cause; M19.90 Unspecified osteoarthritis, unspecified site; R73.03 Prediabetes; F03.90 Unspecified dementia, unspecified severity, without behavioral disturbance, psychotic disturbance, mood disturbance, and anxiety; K29.00 Acute gastritis without bleeding; I10 Essential (primary) hypertension; F32.A Depression, unspecified; F41.9 Anxiety disorder, unspecified; Z79.899 Other long term (current) drug therapy; Z91.041 Radiographic dye allergy status; Z20.822 Contact with and (suspected) exposure to COVID-19; Z90.79 Acquired absence of other genital organ(s); Z98.41 Cataract extraction status, right eye; Z98.42 Cataract extraction status, left eye; Z90.49 Acquired absence of other specified parts of digestive tract; Z66 Do not resuscitate

== ENCOUNTER → 2023-02-26 | Outpatient (REF) | payer MEDICARE ==
[~2023-02-26] MED LIST changes: +ACET-683 PO; +ACET-907 PO; +ASPI81TAEC PO; +DICL20GE TP; +DULC10SU2 PR; +ERGO500029 PO; +FLEEENE12 PR; +GABA-1171 PO; +LIDO1PAD TOP; +MEMA1TAB3 PO; +METO1TAB32 PO; +MOM30SS2 PO; +OXYC-517 PO; +PARO10TA3 PO; +RISP50INJ IM; +SYST1SOL OU; +VIT D; +[UNRECOGNIZED DRUG - CODE] IM
[2023-02-26 09:46] LABS: HEMATOCRIT 25.5 % (36.0-47.0); HEMOGLOBIN 8.4 g/dl (12.0-15.5); MEAN CORPUSCULAR HEMOGLOBIN 29.8 pg (27.0-33.0); MEAN CORPUSCULAR HGB CONC 32.9 g/dl (32.0-36.5); MEAN CORPUSCULAR VOLUME 90.4 fl (80.0-96.0); PLATELET COUNT, AUTOMATED 158 10^3/uL (150-450); RED BLOOD COUNT 2.82 10^6/uL (4.00-5.40); WHITE BLOOD COUNT 6.1 10^3/uL (4.0-10.0)
[2023-02-26 10:11] LABS: BLOOD UREA NITROGEN 21 MG/DL (9-23); CALCIUM LEVEL 7.7 MG/DL (8.3-10.6); CARBON DIOXIDE LEVEL 24 MMOL/L (20-31); CHLORIDE LEVEL 104 MMOL/L (98-107); GLOMERULAR FILTRATION RATE > 60.0 (>32); GLUCOSE, FASTING 234 MG/DL (74-106); SODIUM LEVEL 136 MMOL/L (136-145)
== END ==
LOC: SKLAB6 09:07
PROVIDERS: ATTEND Internal Medicine
DX: S72.06 Articular fracture of head of femur (principal); Z79.899 Other long term (current) drug therapy

== ENCOUNTER → 2023-03-11 | Outpatient (CLI) | payer MEDICARE | LOC: M SOG 11:14 | PROVIDERS: ATTEND Physician Assistant | DX: S72.141D Displaced intertrochanteric fracture of right femur, subsequent encounter for closed fracture with routine healing (principal) ==

== ENCOUNTER → 2023-03-21 | Outpatient (CLI) | payer MEDICARE | LOC: M RAD 14:27 | PROVIDERS: ATTEND Nurse Practitioner Adult Health | DX: M25.551 Pain in right hip (principal); M16.0 Bilateral primary osteoarthritis of hip; S72.141D Displaced intertrochanteric fracture of right femur, subsequent encounter for closed fracture with routine healing ==

== ENCOUNTER → 2023-03-21 | Outpatient (REF) | payer MEDICARE | LOC: SKLAB6 14:00 | PROVIDERS: ATTEND Internal Medicine | DX: Z53.8 Procedure and treatment not carried out for other reasons (principal) ==

== ENCOUNTER → 2023-04-12 | Outpatient (CLI) | payer MEDICARE | LOC: M SOG 07:55 | PROVIDERS: ATTEND Physician Assistant | DX: S72.141A Displaced intertrochanteric fracture of right femur, initial encounter for closed fracture (principal); X58.XXXA Exposure to other specified factors, initial encounter ==

== ENCOUNTER → 2023-04-21 | Outpatient (REF) | payer MEDICARE | LOC: SKLAB6 14:58 | PROVIDERS: ATTEND Internal Medicine | DX: R53.83 Other fatigue (principal); R05.9 Cough, unspecified ==

== ENCOUNTER → 2023-06-27 | Outpatient (REF) | payer MEDICARE ==
[2023-06-27 09:31] LABS: HEMATOCRIT 35.6 % (36.0-47.0); HEMOGLOBIN 11.7 g/dl (12.0-15.5); MEAN CORPUSCULAR HGB CONC 32.9 g/dl (32.0-36.5); MEAN CORPUSCULAR VOLUME 88.3 fl (80.0-96.0); PLATELET COUNT, AUTOMATED 192 10^3/uL (150-450); RED BLOOD COUNT 4.03 10^6/uL (4.00-5.40); WHITE BLOOD COUNT 4.3 10^3/uL (4.0-10.0)
[2023-06-27 09:58] LABS: HEMOGLOBIN A1c 6.5 % (4.0-6.0)
[2023-06-27 10:07] LABS: ALBUMIN 3.3 G/DL (3.2-5.2); ALKALINE PHOSPHATASE 56 U/L (46-116); ALT/SGPT 14 U/L (7.0-40); AST/SGOT 19 U/L (<34); BILIRUBIN,TOTAL 0.5 MG/DL (0.3-1.2); BLOOD UREA NITROGEN 29 MG/DL (9-23); CALCIUM LEVEL 9.3 MG/DL (8.3-10.6); CARBON DIOXIDE LEVEL 26 MMOL/L (20-31); CHLORIDE LEVEL 109 MMOL/L (98-107); CREATININE FOR GFR 0.63 MG/DL (0.55-1.30); GLOMERULAR FILTRATION RATE > 60.0 (>32); GLUCOSE, FASTING 118 MG/DL (74-106); POTASSIUM SERUM 4.1 MMOL/L (3.5-5.1); SODIUM LEVEL 142 MMOL/L (136-145); TOTAL PROTEIN 5.9 G/DL (5.7-8.2)
== END ==
LOC: SKLAB6 07:00
PROVIDERS: ATTEND Internal Medicine
DX: E11.9 Type 2 diabetes mellitus without complications (principal)

== ENCOUNTER → 2023-07-01 | Outpatient (CLI) | payer MEDICARE | LOC: M RAD 12:31 | PROVIDERS: ATTEND Internal Medicine | DX: R29.6 Repeated falls (principal); G31.9 Degenerative disease of nervous system, unspecified ==

== ENCOUNTER → 2023-07-01 | Outpatient (REF) | payer MEDICARE ==
[2023-07-01 12:36] LABS: HEMATOCRIT 36.8 % (36.0-47.0); HEMOGLOBIN 11.9 g/dl (12.0-15.5); MEAN CORPUSCULAR HEMOGLOBIN 28.5 pg (27.0-33.0); MEAN CORPUSCULAR HGB CONC 32.3 g/dl (32.0-36.5); MEAN CORPUSCULAR VOLUME 88.2 fl (80.0-96.0); PLATELET COUNT, AUTOMATED 217 10^3/uL (150-450); RED BLOOD COUNT 4.17 10^6/uL (4.00-5.40); WHITE BLOOD COUNT 5.1 10^3/uL (4.0-10.0)
[2023-07-01 12:53] LABS: BLOOD UREA NITROGEN 28 MG/DL (9-23); CALCIUM LEVEL 9.7 MG/DL (8.3-10.6); CARBON DIOXIDE LEVEL 28 MMOL/L (20-31); CHLORIDE LEVEL 108 MMOL/L (98-107); CREATININE FOR GFR 0.57 MG/DL (0.55-1.30); GLOMERULAR FILTRATION RATE > 60.0 (>32); GLUCOSE, FASTING 111 MG/DL (74-106); POTASSIUM SERUM 4.1 MMOL/L (3.5-5.1); SODIUM LEVEL 142 MMOL/L (136-145)
== END ==
LOC: SKLAB6 11:57
PROVIDERS: ATTEND Internal Medicine
DX: R29.6 Repeated falls (principal)

== ENCOUNTER → 2023-08-16 | Outpatient (REF) | payer MEDICARE ==
[2023-08-16 08:03] LABS: HEMATOCRIT 36.3 % (36.0-47.0); HEMOGLOBIN 12.4 g/dl (12.0-15.5); MEAN CORPUSCULAR HEMOGLOBIN 30.1 pg (27.0-33.0); MEAN CORPUSCULAR HGB CONC 34.2 g/dl (32.0-36.5); MEAN CORPUSCULAR VOLUME 88.1 fl (80.0-96.0); PLATELET COUNT, AUTOMATED 155 10^3/uL (150-450); RED BLOOD COUNT 4.12 10^6/uL (4.00-5.40); WHITE BLOOD COUNT 4.9 10^3/uL (4.0-10.0)
[2023-08-16 08:28] LABS: BLOOD UREA NITROGEN 27 MG/DL (9-23); CALCIUM LEVEL 8.8 MG/DL (8.3-10.6); CARBON DIOXIDE LEVEL 27 MMOL/L (20-31); CHLORIDE LEVEL 102 MMOL/L (98-107); CREATININE FOR GFR 0.63 MG/DL (0.55-1.30); GLOMERULAR FILTRATION RATE > 60.0 (>32); GLUCOSE, FASTING 134 MG/DL (74-106); POTASSIUM SERUM 3.8 MMOL/L (3.5-5.1); SODIUM LEVEL 137 MMOL/L (136-145)
== END ==
LOC: SKLAB6 06:49
PROVIDERS: ATTEND Internal Medicine
DX: R50.9 Fever, unspecified (principal)

== ENCOUNTER → 2023-10-02 | Outpatient (REF) | payer MEDICARE, MEDICAID | LOC: M SFHCDERM 17:35 | PROVIDERS: ATTEND Physician Assistant | DX: D48.9 Neoplasm of uncertain behavior, unspecified (principal) ==

== ENCOUNTER → 2023-12-26 | Outpatient (REF) | payer MEDICARE, MEDICAID ==
[2023-12-26 11:00] LABS: HEMATOCRIT 40.5 % (36.0-47.0); HEMOGLOBIN 13.1 g/dl (12.0-15.5); MEAN CORPUSCULAR HEMOGLOBIN 29.6 pg (27.0-33.0); MEAN CORPUSCULAR HGB CONC 32.3 g/dl (32.0-36.5); MEAN CORPUSCULAR VOLUME 91.4 fl (80.0-96.0); PLATELET COUNT, AUTOMATED 212 10^3/uL (150-450); RED BLOOD COUNT 4.43 10^6/uL (4.00-5.40); WHITE BLOOD COUNT 4.7 10^3/uL (4.0-10.0)
[2023-12-26 11:11] LABS: HEMOGLOBIN A1c 6.4 % (4.0-6.0)
[2023-12-26 11:22] LABS: ALKALINE PHOSPHATASE 73 U/L (46-116); ALT/SGPT 18 U/L (7.0-40); AST/SGOT 18 U/L (<34); BILIRUBIN,TOTAL 0.5 MG/DL (0.3-1.2); BLOOD UREA NITROGEN 28 MG/DL (9-23); CALCIUM LEVEL 9.8 MG/DL (8.3-10.6); CARBON DIOXIDE LEVEL 24 MMOL/L (20-31); CHLORIDE LEVEL 105 MMOL/L (98-107); CREATININE FOR GFR 0.66 MG/DL (0.55-1.30); GLOMERULAR FILTRATION RATE > 60.0 (>32); GLUCOSE, FASTING 268 MG/DL (74-106); POTASSIUM SERUM 4.1 MMOL/L (3.5-5.1); SODIUM LEVEL 138 MMOL/L (136-145); TOTAL PROTEIN 7.1 G/DL (5.7-8.2)
== END ==
LOC: SKLAB6 07:08
PROVIDERS: ATTEND Internal Medicine
DX: F03.90 Unspecified dementia, unspecified severity, without behavioral disturbance, psychotic disturbance, mood disturbance, and anxiety (principal); Z79.899 Other long term (current) drug therapy

== ENCOUNTER 2024-02-04 02:39 | Emergency (ER) | payer MEDICAID, MEDICARE ==
[~2024-02-04] VITALS: Ht 157.5 cm; Wt 56.8 kg
[2024-02-04 05:39] VITALS: BP 134/78; TEMP 98.9; O2SAT 99
[2024-02-04] MEDS: BOOSTRIX VACCINE (TETANUS/DIPHTH/ACEL. PERTUSSIS) 0.5ML SYR IM ONE (05:48)
== END 2024-02-04 06:14 | disposition home or self-care (01) ==
LOC: M ED 02:39
DX: S01.81XA Laceration without foreign body of other part of head, initial encounter (principal); W19.XXXA Unspecified fall, initial encounter; Y92.129 Unspecified place in nursing home as the place of occurrence of the external cause; Y93.9 Activity, unspecified; Y99.9 Unspecified external cause status; R73.01 Impaired fasting glucose; F03.90 Unspecified dementia, unspecified severity, without behavioral disturbance, psychotic disturbance, mood disturbance, and anxiety; Z79.899 Other long term (current) drug therapy; Z91.041 Radiographic dye allergy status

== ENCOUNTER 2024-04-06 23:21 | Emergency (ER) | payer MEDICARE ==
[2024-04-07 00:11] VITALS: TEMP 97
[2024-04-07 01:06] LABS: HEMATOCRIT 37.5 % (36.0-47.0); HEMOGLOBIN 12.4 g/dl (12.0-15.5); MEAN CORPUSCULAR HEMOGLOBIN 30.3 pg (27.0-33.0); MEAN CORPUSCULAR HGB CONC 33.1 g/dl (32.0-36.5); MEAN CORPUSCULAR VOLUME 91.7 fl (80.0-96.0); PLATELET COUNT, AUTOMATED 199 10^3/uL (150-450); RED BLOOD COUNT 4.09 10^6/uL (4.00-5.40); WHITE BLOOD COUNT 5.9 10^3/uL (4.0-10.0)
[2024-04-07 01:27] LABS: BLOOD UREA NITROGEN 27 MG/DL (9-23); CALCIUM LEVEL 9.7 MG/DL (8.3-10.6); CARBON DIOXIDE LEVEL 28 MMOL/L (20-31); CHLORIDE LEVEL 107 MMOL/L (98-107); CREATININE FOR GFR 0.66 MG/DL (0.55-1.30); GLOMERULAR FILTRATION RATE > 60.0 (>32); GLUCOSE, FASTING 133 MG/DL (74-106); POTASSIUM SERUM 4.1 MMOL/L (3.5-5.1); SODIUM LEVEL 143 MMOL/L (136-145)
[2024-04-07 01:49] LABS: APPEARANCE, URINE CLEAR (CLEAR); BACTERIA, URINE AUTO 1+ (NEGATIVE); BILIRUBIN, URINE AUTO NEGATIVE (NEGATIVE); BLOOD, URINE BLOOD NEGATIVE (NEGATIVE); COLOR, URINE YELLOW (YELLOW); GLUCOSE, URINE (UA) AUTO NEGATIVE (NEGATIVE); KETONE, URINE AUTO NEGATIVE (NEGATIVE); LEUKOCYTE ESTERASE, URINE AUTO 2+ (NEGATIVE); MUCUS, URINE SMALL (NEGATIVE); NITRITE, URINE AUTO NEGATIVE (NEGATIVE); PROTEIN, URINE AUTO NEGATIVE (NEGATIVE); RBC, URINE AUTO 1 /HPF (0-3); SQUAMOUS EPITHELIAL CELL UR AU 3 /HPF (0-6); UROBILINOGEN, URINE AUTO 0.2 mg/dL (0.0-2.0); WBC, URINE AUTO 11 /HPF (0-3)
[2024-04-07 02:22] VITALS: BP 144/80; O2SAT 98
== END 2024-04-07 02:33 | disposition home or self-care (01) ==
LOC: M ED 23:21 → EDBD 23:21 → EDUNIT# 23:21 → M ED 04-07 02:33
DX: M25.551 Pain in right hip (principal); F03.90 Unspecified dementia, unspecified severity, without behavioral disturbance, psychotic disturbance, mood disturbance, and anxiety; Z79.899 Other long term (current) drug therapy; Z91.041 Radiographic dye allergy status; Z88.2 Allergy status to sulfonamides; Z88.1 Allergy status to other antibiotic agents; Z88.8 Allergy status to other drugs, medicaments and biological substances

== ENCOUNTER → 2024-06-25 | Outpatient (REF) | payer MEDICARE ==
[2024-06-25 06:53] LABS: HEMATOCRIT 37.7 % (36.0-47.0); HEMOGLOBIN 12.6 g/dl (12.0-15.5); MEAN CORPUSCULAR HEMOGLOBIN 30.4 pg (27.0-33.0); MEAN CORPUSCULAR HGB CONC 33.4 g/dl (32.0-36.5); MEAN CORPUSCULAR VOLUME 91.1 fl (80.0-96.0); PLATELET COUNT, AUTOMATED 237 10^3/uL (150-450); RED BLOOD COUNT 4.14 10^6/uL (4.00-5.40); WHITE BLOOD COUNT 4.8 10^3/uL (4.0-10.0)
[2024-06-25 07:12] LABS: ALBUMIN 3.5 G/DL (3.2-5.2); ALKALINE PHOSPHATASE 67 U/L (35-104); ALT/SGPT 13 U/L (7.0-40); AST/SGOT 19 U/L (<34); BILIRUBIN,TOTAL 0.4 MG/DL (0.3-1.2); BLOOD UREA NITROGEN 25 MG/DL (9-23); CALCIUM LEVEL 9.6 MG/DL (8.3-10.6); CARBON DIOXIDE LEVEL 29 MMOL/L (20-31); CHLORIDE LEVEL 104 MMOL/L (98-107); CREATININE FOR GFR 0.61 MG/DL (0.55-1.30); GLOMERULAR FILTRATION RATE > 60.0 (>32); GLUCOSE, FASTING 113 MG/DL (74-106); SODIUM LEVEL 140 MMOL/L (136-145); TOTAL PROTEIN 6.6 G/DL (5.7-8.2)
[2024-06-25 07:19] LABS: HEMOGLOBIN A1c 7.2 % (4.0-6.0)
== END ==
LOC: SKLAB6 07:00
PROVIDERS: ATTEND Internal Medicine
DX: E11.9 Type 2 diabetes mellitus without complications (principal); Z79.899 Other long term (current) drug therapy

== ENCOUNTER → 2024-07-16 | Outpatient (REF) | payer MEDICARE ==
[2024-07-16 15:38] LABS: HEMATOCRIT 35.7 % (36.0-47.0); HEMOGLOBIN 11.6 g/dl (12.0-15.5); MEAN CORPUSCULAR HEMOGLOBIN 29.6 pg (27.0-33.0); MEAN CORPUSCULAR HGB CONC 32.5 g/dl (32.0-36.5); MEAN CORPUSCULAR VOLUME 91.1 fl (80.0-96.0); PLATELET COUNT, AUTOMATED 207 10^3/uL (150-450); RED BLOOD COUNT 3.92 10^6/uL (4.00-5.40)
[2024-07-16 16:04] LABS: BLOOD UREA NITROGEN 25 MG/DL (9-23); CALCIUM LEVEL 8.7 MG/DL (8.3-10.6); CARBON DIOXIDE LEVEL 27 MMOL/L (20-31); CHLORIDE LEVEL 107 MMOL/L (98-107); GLOMERULAR FILTRATION RATE > 60.0 (>32); GLUCOSE, FASTING 200 MG/DL (74-106); POTASSIUM SERUM 3.8 MMOL/L (3.5-5.1); SODIUM LEVEL 142 MMOL/L (136-145)
== END ==
LOC: SKLAB6 14:25
PROVIDERS: ATTEND Internal Medicine
DX: R19.7 Diarrhea, unspecified (principal)

== ENCOUNTER → 2025-03-24 | Outpatient (REF) | payer MEDICARE, MEDICAID | LOC: SKLAB6 10:51 | PROVIDERS: ATTEND Family Medicine | DX: Z11.2 Encounter for screening for other bacterial diseases (principal); Z20.818 Contact with and (suspected) exposure to other bacterial communicable diseases ==